=== PATIENT | male | born 1970 | race Two or more races ===

== ENCOUNTER 2016-11-07 05:24 | Observation (INO) | payer OTHER ==
[~2016-11-07] VITALS: Ht 170.2 cm; Wt 69.6 kg
[~2016-11-07 05:24] MED LIST: ASPI81TA3 PO; ATOR80TA75 PO; CLOP75TA28 PO; LISI-313 PO; METO-448 PO; NIT4 SL
[2016-11-07 06:01] LABS: ADD SCAN DIFF NO
[2016-11-07 06:03] LABS: BASOPHIL # 0.1 10^3/ul (0.0-0.1); BASOPHILS % 0.7 % (0.0-2.0); EOSINOPHILS # 0.1 10^3/ul (0.0-0.5); EOSINOPHILS % 1.5 % (0.0-7.0); HEMATOCRIT 41.2 % (42.0-52.0); LYMPHOCYTES # 2.7 10^3/ul (0.8-2.9); MEAN CORPUSCULAR HEMOGLOBIN 28.9 pg (29.0-33.0); MEAN CORPUSCULAR VOLUME 85.1 fl (82.0-101.0); MEAN PLATELET VOLUME 8.6 fl (7.4-10.4); MONOCYTE # 0.6 10^3/ul (0.3-0.9); MONOCYTES % 9.5 % (0.0-11.0); NEUTROPHIL # 3.2 10^3/ul (1.6-7.5); PLATELET COUNT 266 10^3/UL (140-415); RED BLOOD COUNT 4.84 10^6/ul (4.70-6.10); RED CELL DISTRIBUTION WIDTH 12.7 % (11.5-14.5); WHITE BLOOD COUNT 6.7 10^3/ul (4.8-10.8)
[2016-11-07] MEDS ORDERED: HYDR-902 PO (06:05)
[2016-11-07] MEDS ORDERED: PANT40TA4 PO (06:05)
[2016-11-07 06:23] LABS: ANION GAP 12 (8-16); BLOOD UREA NITROGEN 9 mg/dl (7-20); CALCIUM 8.5 mg/dl (8.4-10.2); CARBON DIOXIDE 21 mmol/L (21-31); CHLORIDE 106 mmol/L (97-110); CREATININE 0.61 mg/dl (0.61-1.24); GLUCOSE 106 mg/dl (70-220); POTASSIUM 3.7 mmol/L (3.5-5.1); SODIUM 135 mmol/L (135-144)
[2016-11-07 06:25] LABS: INR 0.88; PROTIME 11.9 Sec (12.2-14.2); PT RATIO 0.9
[2016-11-07 06:26] LABS: PARTIAL THROMBOPLASTIN TIME 28.2 Sec (25.0-35.0)
--- NOTE | 2016-11-07 06:30 | RADRPT ---
PROCEDURE: CHEST - 1 VIEW CLINICAL INDICATION: 46-year-old male with chest pain. TECHNIQUE: A single frontal AP semi-erect view of the chest was performed. The images were review ed on a PACS workstation. COMPARISON: Chest x-ray June 07, 2016; CTA chest June 08, 2016. FINDINGS: The cardiomediastinal silhouette has a normal appearance. There is no evidence for an infiltrate. There is no evidence for congestive heart failure. There is no evidence for pneumothorax. The osseou s structures are intact. IMPRESSION: No evidence for active cardiopulmonary disease. .Miki Zepeda MD, Date Time Electronically viewed and signed by .Miki Zepeda MD, MD on 11/07/2016 06:30 .M/
[2016-11-07] MEDS ORDERED: ASPIRIN 81 MG TAB PO STA (06:33)
[2016-11-07] MEDS ORDERED: NITROGLYCERIN 2% 1 GM OINT PKT TD STA (06:33)
--- NOTE | 2016-11-07 06:33 | ERA ---
ER Documentation Chief Complaint Date/Time DATE: 11/07/16 TIME: 06:28 Chief Complaint Chest Pain HPI This is a 46-year-old male with a history of 3 heart attacks with 5 cardiac stents. He says his last heart attack was in May 2016. The patient states that he woke a few hours ago is some substernal chest pressure similar to his prior heart attacks or shortness of breath. There is no radiation of pressure no diaphoresis. He said he called the ambulance where he was given 2 sprays of nitroglycerin which relieved his chest pain completely. Patient does not know who his crap shooter is. He is currently pain-free. Patient says he had a few drinks last night but does not drink on a daily basis. He said when he had his chest pain this morning he checked his blood pressure was 187/110. ROS All systems reviewed and are negative except as per history of present illness. Medications Home Meds Active Scripts Metoprolol Tartrate* (Lopressor*) 25 Mg Tab, 25 MG PO BID for 30 Days, TAB 1 Refill Prov:DOUGLAS NGUYEN MD 06/08/16 Lisinopril* (Lisinopril*) 5 Mg Tablet, 5 MG PO DAILY for 30 Days, TAB 1 Refill Prov:DOUGLAS NGUYEN MD 06/08/16 Clopidogrel Bisulfate (Clopidogrel) 75 Mg Tablet, 75 MG PO DAILY for 30 Days, TAB 1 Refill Prov:DOUGLAS NGUYEN MD 06/08/16 Atorvastatin* (Atorvastatin*) 80 Mg Tablet, 80 MG PO HS for 30 Days, TAB 1 Refill Prov:DOUGLAS NGUYEN MD 06/08/16 Aspirin (Aspirin) 81 Mg Chew, 81 MG PO DAILY for 30 Days, TAB 1 Refill Prov:DOUGLAS NGUYEN MD 06/08/16 Reported Medications Hydrocodone/Acetaminophen ([place] 10-325 Tablet) 1 Each Tablet, 1 EACH PO Y for PAIN, TAB 11/07/16 Pantoprazole* (Pantoprazole*) 40 Mg Tablet.dr, 40 MG PO DAILY, TAB 11/07/16 Discontinued Scripts Nitroglycerin* (Nitrostat*) 0.4 Mg Tab.subl, 1 TAB SL Q5M Y for ANGINA for 15 Days, 1 Refill Prov:DOUGLAS NGUYEN MD 06/08/16 Allergies Allergies: Coded Allergies: No Known Drug Allergies (Unverified Allergy, Mild, 11/07/16) PMhx/Soc History of Surgery: No Anesthesia Reaction: No Hx Neurological Disorder: No Hx Respiratory Disorders: No Hx Cardiac Disorders: Yes (CAD,STEMI,STENTS) Hx Psychiatric Problems: No Hx Miscellaneous Medical Probl: No Hx Alcohol Use: No Hx Substance Use: No Hx Tobacco Use: Yes Smoking Status: Current every day smoker FmHx Family History: coronary disease Physical Exam Vitals Vital Signs Date Time Temp Pulse Resp B/P Pulse Ox O2 Delivery O2 Flow Rate FiO2 11/07/16 05:37 98.3 87 20 127/87 100 Physical Exam Const: Well-developed, well-nourished, smells of alcohol Head: Atraumatic, normocephalic Eyes: Normal Conjunctiva, PERRLA, EOMI, normal sclera, no nystagmus ENT: Normal External Ears, Nose and Mouth, moist mucus membranes. Neck: Full range of motion. No meningismus, no lymphadenopathy. Resp: Clear to auscultation bilaterally, no wheezing, rhonchi, rales Cardio: Regular rate and rhythm, no murmurs, S1 S2 present Abd: Soft, non tender x 4, non distended. Normal bowel sounds, no guarding or rebound, no pulsitile abdominal masses or bruits Skin: No petechiae or rashes, no ecchymosis , no maculopapular rash Back: No midline or flank tenderness Ext: No cyanosis, or edema, FROM x 4, normal inspection, neurovascularly intact x 4 Neur: Awake and alert, STR 5/5 x 4, sensation intact x 4, no focal findings, cerebellum intact Psych: Normal Mood and Affect Result Diagram: 11/07/16 0530 11/07/16 0201 Results 24 hrs Laboratory Tests Test 11/07/16 02:01 11/07/16 05:30 Prothrombin Time 11.9Sec Prothrombin Time Ratio 0.9 INR International Normalized Ratio 0.88 Activated Partial Thromboplast Time 28.2Sec Sodium Level 135mmol/L Potassium Level 3.7mmol/L Chloride Level 106mmol/L Carbon Dioxide Level 21mmol/L Anion Gap 12 Blood Urea Nitrogen 9mg/dl Creatinine 0.61mg/dl Glucose Level 106mg/dl Calcium Level 8.5mg/dl Troponin I < 0.012ng/ml White Blood Count 6.710^3/ul Red Blood Count 4.8410^6/ul Hemoglobin 14.0g/dl Hematocrit 41.2% Mean Corpuscular Volume 85.1fl Mean Corpuscular Hemoglobin 28.9pg Mean Corpuscular Hemoglobin Concent 34.0g/dl Red Cell Distribution Width 12.7% Platelet Count 49590^3/UL Mean Platelet Volume 8.6fl Neutrophils % 48.0% Lymphocytes % 40.0% Monocytes % 9.5% Eosinophils % 1.5% Basophils % 0.7% Nucleated Red Blood Cells % 0.0/100WBC Neutrophils # 3.210^3/ul Lymphocytes # 2.710^3/ul Monocytes # 0.610^3/ul Eosinophils # 0.110^3/ul Basophils # 0.110^3/ul Nucleated Red Blood Cells # 0.010^3/ul Ethyl Alcohol Level 42.0mg/dl Current Medications Medications (Trade) Dose Ordered Sig/Gayle Route PRN Reason Start Time Stop Time Status Last Admin Dose Admin Aspirin (Aspirin) 162 mg ONCE STAT PO 11/07/16 06:33 11/07/16 06:36 DC 11/07/16 07:34 Nitroglycerin (Nitroglycerin 2% Oint) 1 inch ONCE STAT TD 11/07/16 06:33 11/07/16 06:36 DC 11/07/16 07:34 Procedures/MDM EKG: Rate/Rhythm: [Normal Sinus Rhythm,NL intervals] QRS, ST, QT: NORMAL RI, QRS, QT] Impression: [NORMAL EKG] PROCEDURE: CHEST - 1 VIEW CLINICAL INDICATION: 46-year-old male with chest pain. TECHNIQUE: A single frontal AP semi-erect view of the chest was performed. The images were reviewed on a PACS workstation. COMPARISON: Chest x-ray June 07, 2016; CTA chest June 08, 2016. FINDINGS: The cardiomediastinal silhouette has a normal appearance. There is no evidence for an infiltrate. There is no evidence for congestive heart failure. There is no evidence for pneumothorax. The osseous structures are intact. IMPRESSION: No evidence for active cardiopulmonary disease. .Miki Zepeda MD, MD Date Time Electronically viewed and signed by .Miki Zepeda MD, on 11/07/2016 06:30 .M/ CC: ROB GLASS MD Patient's symptoms are concerning for cardiac cause will require inpatient workup and continuous monitoring. Further w/u for ischemia, arrhythmia, PE or dissection will be deferred to the inpatient team. Accepting Care Team: Current data and ongoing care discussed. Time: Time of admission Primary Provider: [XOXOXO] Consulting: [XOXOXO] Outstanding Data: none Departure Diagnosis: Primary Impression: Chest pain Qualified Code: R07.9 - Chest pain, unspecified type Condition: Stable SONY FIORE DO November 07, 2016 06:33
[2016-11-07 06:44] LABS: TROPONIN-I < 0.012 ng/ml (0.00-0.12)
[2016-11-07] MEDS ORDERED: ACETAMINOPHEN 325 MG TAB PO PRN ×2 (10:30→11:00)
[2016-11-07] MEDS ORDERED: ONDANSETRON 4 MG INJ IV PRN ×2 (10:30→11:00)
[2016-11-07] MEDS ORDERED: BISACODYL (EC) 5 MG TAB PO PRN (11:00)
[2016-11-07] MEDS ORDERED: HYDROCODONE/APAP (5/325) TAB PO PRN (11:00)
[2016-11-07] MEDS ORDERED: NACL 0.9% 3 ML SYG IV SCH (11:00)
[2016-11-07] MEDS ORDERED: morphine 2 MG INJ IV PRN (11:00)
[2016-11-07] MEDS ORDERED: MAGNESIUM HYDROXIDE 30ML CUP PO PRN (11:00)
[2016-11-07] MEDS ORDERED: LORAZEPAM 0.5 MG TAB PO PRN (11:00)
[2016-11-07] MEDS ORDERED: hydrALAzine 20 MG INJ IV PRN (12:00)
[2016-11-07 12:21] LABS: CREATINE KINASE 96 IU/L (23-200)
[2016-11-07 12:28] VITALS: Ht 170.2 cm; Wt 69.6 kg
[2016-11-07 12:29] VITALS: PULSE 80
[2016-11-07 12:32] LABS: TROPONIN-I < 0.012 ng/ml (0.00-0.12)
--- NOTE | 2016-11-07 14:04 | CONS ---
Date/Time of Note Date/Time of Note DATE: 11/07/16 TIME: 13:52 Assessment/Plan Assessment/Plan Chief Complaint/Hosp Course Chest pain: Pt with very significant h/o CAD with multiple PCIs. Though his EKG and trops are unremarkable and his chest pain may have been from subendocardial ischemia in the setting of his elevated BP, stress testing (especially with known intermediate mid RCA lesion) is appropriate to evaluate for ischemia. h/o CAD s/p STEMI/multiple PCIs: last cath 05/25 reviewed and the pt has an intermediate 50% distal RCA lesion. Possibly causing the angina but will evaluate by noninvasive testing first. HTN HL Active smoker: counseled on cessation (>10 min) but currently not interested -Lexiscan MPI today -ASA, plavix, statin -metoprolol 25mg BID -lisinopril -will consider adding imdur Problems: Consultation Date/Type/Reason Admit Date/Time November 07, 2016 at 10:08 Date of Consultation: November 07, 2016 Type of Consultation: Cardiology Reason for Consultation Chest pain Referring Provider: KESHA HERNANDEZ ADULT PAROLE OFFICER Hx of Present Illness 46 yo M with a h/o CAD s/p PCI x 5 including lateral STEMI 05/2016 s/p PCI of diag, HTN, active smoker, who presented with chest pain. The pt notes that he woke up from his sleep and felt tightness in his throat which is the sensation he feels when his BP is high. He checked and his SBP was 185. Usually the symptyoms go away after he takes his lisinopril and metoprolol but they did not resolve quickly so he called paramedics. After he was given NTG spray his symptoms eventually resolved. His BP on admission was normal. He notes that during his prior [place] episodes including 05/25, he usually feels chest pressure but these episodes are more throat tightness. He is compliant with his meds but continues to smoke 1+ pack daily (previously 3-4 per pt). He is not interested in quiting at this time. Currently he is chest pain free. No SOB, orthopnea, edema. per HPI Past Surgical History Past Surgical Hx: angioplasty Social History Smoking Status: Current every day smoker Exam/Review of Systems Vital Signs Vitals Vital Signs Date Time Temp Pulse Resp B/P Pulse Ox O2 Delivery O2 Flow Rate FiO2 11/07/16 12:29 80 11/07/16 11:30 20 114/70 99 Room Air 11/07/16 05:37 98.3 Exam Constitutional: alert, oriented Psych: nl mood/affect, no complaints Head: atraumatic, normocephalic Neck: supple, No jvd Respiratory: clear to auscultation, No crackles/rales Cardiovascular: regular rate and rhythm, No edema, No systolic murmur Gastrointestinal: non-tender, soft Extremities: normal pulses Neurological: nl mental status, nl speech Skin: No rash or lesions Results EKG: sinus, no ST changes Result Diagram: 11/07/16 0530 11/07/16 0201 Results 24 hrs Laboratory Tests Test 11/07/16 02:01 11/07/16 05:30 11/07/16 11:50 11/07/16 12:10 Prothrombin Time 11.9 L Prothrombin Time Ratio 0.9 INR International Normalized Ratio 0.88 Activated Partial Thromboplast Time 28.2 Sodium Level 135 Potassium Level 3.7 Chloride Level 106 Carbon Dioxide Level 21 Anion Gap 12 Blood Urea Nitrogen 9 Creatinine 0.61 Glucose Level 106 Calcium Level 8.5 Troponin I < 0.012 < 0.012 White Blood Count 6.7 # Red Blood Count 4.84 Hemoglobin 14.0 Hematocrit 41.2 L Mean Corpuscular Volume 85.1 Mean Corpuscular Hemoglobin 28.9 L Mean Corpuscular Hemoglobin Concent 34.0 Red Cell Distribution Width 12.7 Platelet Count 266 Mean Platelet Volume 8.6 # Neutrophils % 48.0 Lymphocytes % 40.0 Monocytes % 9.5 Eosinophils % 1.5 Basophils % 0.7 Nucleated Red Blood Cells % 0.0 Neutrophils # 3.2 Lymphocytes # 2.7 Monocytes # 0.6 Eosinophils # 0.1 Basophils # 0.1 Nucleated Red Blood Cells # 0.0 Ethyl Alcohol Level 42.0 Creatine Kinase 96 Creatine Kinase Index 0.5 Creatinine Kinase MB (Mass) 0.50 Hemoglobin A1c 5.7 Free Thyroxine 0.68 Medications Medications Current Medications Lorazepam (Ativan) 0.5 mg Q8H PRN PO ANXIETY; Start 11/07/16 at 11:00 Ondansetron HCl (Zofran Inj) 4 mg Q6H PRN IV NAUSEA AND/OR VOMITING; Start at 11:00 Acetaminophen (Tylenol Tab) 650 mg Q6H PRN PO PAIN LEVEL 1-3 OR FEVER; Start at 11:00 Acetaminophen/ Hydrocodone Bitart ([place] (5/325)) 1 tab Q6H PRN PO PAIN LEVEL 4 -6; Start 11/07/16 at 11:00 Morphine Sulfate (morphine) 2 mg Q4H PRN IV PAIN LEVEL 7-10; Start 11/07/16 at 11:00 Magnesium Hydroxide (Milk Of Mag) 30 ml DAILY PRN PO CONSTIPATION; Start at 11:00 Bisacodyl (Dulcolax) 5 mg DAILY PRN PO CONSTIPATION; Start 11/07/16 at 11:00 Famotidine (Pepcid) 20 mg Q12 PO ; Start 11/07/16 at 21:00 Enoxaparin Sodium (Lovenox) 40 mg DAILY SC ; Start 11/08/16 at 09:00 Aspirin (Aspirin) 81 mg DAILY PO ; Start 11/08/16 at 09:00 Atorvastatin Calcium (Lipitor) 80 mg HS PO ; Start 11/07/16 at 21:00 Clopidogrel Bisulfate (plaVIX) 75 mg DAILY PO ; Start 11/08/16 at 09:00 Lisinopril (Zestril) 5 mg DAILY PO ; Start 11/08/16 at 09:00 Metoprolol Tartrate (Lopressor) 25 mg BID PO ; Start 11/07/16 at 21:00 Nicotine (Nicoderm 14 Mg/ 24hr) 1 patch DAILY TRANSDERM ; Start 11/07/16 at 12: 00 Hydralazine HCl (Apresoline) 10 mg Q6H PRN IV SBP>160; Start 11/07/16 at 12:00 STEPHANI DICKENS November 07, 2016 14:02
--- NOTE | 2016-11-07 14:17 | HP ---
DATE OF ADMISSION: 11/07/2016 TIME OF EVALUATION:. REASON FOR ADMISSION: Chest pain. CONSULTATIONS: Dr. Louis Campbell, Cardiology. HISTORY OF PRESENT ILLNESS: This is a 46-year-old male with past medical history of CAD status post multiple coronary artery stenting, who continues to smoke despite his clinical condition. He came to the emergency room with a main complaint of chest pain that started at 3:00 a.m. in the morning of 2016. The patient verbalized the chest pain as substernal with no radiation. The patient verbalized that he felt chest was very heavy. He checked his blood pressure and his blood pressure was in the high 180s. Hence he called the paramedics. Paramedics arrived and gave him sublingual nitroglycerin with some relief of his chest pain. He denied any radiation of his chest pain. He denied any diaphoresis or nausea. The patient denied any dyspnea, fevers, chills, nausea or vomiting, abdominal pain, diarrhea, hematochezia, or dysuria. The patient verbalized that he had a few beers the previous night. The patient had his last stent placed to the diagonal artery in May [address] Bonilla at [facility]. The patient verbalized that he has been compliant with all his medications, specifically the aspirin and Plavix. In the emergency room, the patient's initial set of troponins were negative. The patient was noticed to have an ethyl alcohol level of 42.0. The patient's chest x-ray showed no evidence of any active cardiopulmonary disease. The patient's 12-lead EKG was showing normal sinus rhythm. The patient was treated with oral aspirin along with transdermal nitroglycerin in the emergency room. PAST MEDICAL HISTORY: Essential hypertension, dyslipidemia, CAD status post coronary artery stenting, nicotine use. PAST SURGICAL HISTORY: Left heart catheterization. HOME MEDICATIONS: 1. Lopressor 25 mg p.o. b.i.d. 2. Lisinopril 5 mg p.o. daily. 3. Plavix 75 mg p.o. daily. 4. Aspirin 81 mg p.o. daily. 5. Atorvastatin 80 mg p.o. at bedtime. 6. Protonix 40 mg p.o. daily. ALLERGIES: NO KNOWN DRUG ALLERGIES. SOCIAL HISTORY: The patient lives at home. The patient continues to smoke 10 to 15 cigarettes per day. The patient drinks occasionally. Denies any use of illicit drugs. REVIEW OF SYSTEMS: A 12-point review of systems performed and the review of systems was negative other than what is mentioned in the history of present illness. PHYSICAL EXAMINATION: VITAL SIGNS: Temperature 98.3, pulse is 66, respiratory rate 20, blood pressure 111/68, oxygen saturation 98% on room air. GENERAL: This is well-built, well-nourished [place] male lying in bed in no apparent distress. HEENT: Head normocephalic and atraumatic. Eyes: Anicteric sclerae. Conjunctivae clear. ENT: Nasal septum is midline. Oral mucosa is dry. NECK: Supple. No JVD noticed. RESPIRATORY: Bilaterally diminished breath sounds. No adventitious breath sounds. No use of accessory muscles of respiration. CARDIAC: Regular rate and rhythm. S1, S2 heard. ABDOMEN: Soft, nontender, nondistended. Bowel sounds positive in all 4 quadrants. GENITOURINARY: Deferred. EXTREMITIES: No cyanosis, no clubbing, no edema. Peripheral pulses are palpable. NEUROLOGIC: The patient is awake, alert and oriented. Cranial nerves are grossly intact. LABORATORY AND DIAGNOSTIC DATA: WBC 6.7, hemoglobin 14.0, hematocrit 41.2, platelet count of 266. Sodium 135, potassium 3.7, chloride 106, carbon dioxide 21, anion gap 12, BUN 9, creatinine 0.64, glucose 106, calcium 8.4. Troponin I less than 0.012. Ethyl alcohol level 42.0. PT 11.9, INR 0.88, PTT 28.2. Chest x-ray: No acute cardiopulmonary disease. 12-lead EKG: Normal sinus rhythm. IMPRESSION: This is a 46-year-old male with multiple comorbidities including essential hypertension, dyslipidemia and prior CAD, status post stenting, who came to the emergency room with chief complaint of chest pain, who will be admitted here for further treatment and evaluation. ASSESSMENT AND PLAN: 1. Chest pain. To rule out acute coronary syndrome. Serial troponins will be obtained. A cardiology consult will be obtained. The patient recently had a 2D echocardiogram done in May 2016, and ordering an echocardiogram will be deferred to Cardiology. The patient will be continued on dual antiplatelet therapy. 2. Coronary artery disease. Status post multiple coronary artery stenting. The patient will be maintained on antiplatelet therapy and statins. 3. Dyslipidemia. The patient will be continued statins. A fasting lipid panel will be obtained. A low cholesterol diet will be reinforced. 4. Essential hypertension. The patient will be continued on antihypertensives. The patient will also be started on p.r.n. antihypertensives for any systolic blood pressure readings greater than 160 mmHg. 5. Nicotine use. Cessation will be advised. The patient will be provided with a nicotine patch. The patient will be admitted to inpatient telemetry floor. The patient will be started on a low cholesterol diet. The patient will be started on DVT prophylaxis and gastrointestinal prophylaxis. The patient will remain a FULL CODE. Activities will be as tolerated. The rest of the patient's management will be based on the clinical course, the results of diagnostic studies, and inputs from consultants. Based on the patient's clinical presentation, he most probably requires at least 1 midnight's stay for further management and evaluation of his clinical presentation. The case and management of this patient was fully discussed with Dr. Burr. KESHA BURR MD, AM/WILVER Conf#: [id number] DID#: [id number] MTDD
[2016-11-07] MEDS ORDERED: REGADENOSON 0.4 MG/5 ML SYG ONE (15:31)
--- NOTE | 2016-11-07 16:26 | EN ---
Date/Time of Note Date/Time of Note DATE: 11/07/16 TIME: 16:25 Event Note Cardiology Cardiology Event Note Nuclear medicine myocardial perfusion imaging: Date: 11/07/2016 Indication: Chest pain with h/o CAD/PCI After informed consent, the patient was given IV Lexiscan. Pt was monitored for a total of 8 minutes post-infusion without any sings of arrhythmias. Patient had no chest pain or EKG changes. Please refer to separate note for imaging results. STEPHANI DICKENS November 07, 2016 16:25
[2016-11-07 16:30] VITALS: BP 133/78; RESP 20
[2016-11-07] MEDS: CLOPIDOGREL 75 MG TAB PO SCH (17:08)
[2016-11-07] MEDS: LISINOPRIL 5 MG TAB PO SCH (17:11)
--- NOTE | 2016-11-07 17:11 | RADRPT ---
PROCEDURE: Lexiscan myocardial perfusion study CLINICAL INDICATION: 46 -year-old patient with coronary artery disease, status post stent placemen ts, complaining of chest pain. TECHNIQUE: Lexiscan 0.4 mg intravenously separate acquisition gated myocardial perfusion SPECT usi ng Tc 99m sestamibi 25.4 mCi intravenously at stress and Tc-99m Sestamibi, 9.4 mCi intravenously at rest was performed using the sequence. Poststress sestamibi SPECT images were obtained in the supi ne and prone positions. COMPARISON: No prior studies. FINDINGS: Perfusion images reveal no evidence of perfusion defects. Lexiscan post stress gated SPECT images demonstrate no wall motion abnormalities. IMPRESSION: 1. No evidence of perfusion defects. 2. No wall motion abnormalities. 3. The left ventricle ejection fraction at stress is 59%. A call report was made to Dr. Campbell at 05:09 p.m. on November 07, 2016. RPTAT: HH .Caitlin Shah MD, MD Date Time Electronically viewed and signed by .Caitlin Shah MD, on 11/07/2016 17:11 .L/
[2016-11-07] MEDS: NICOTINE (14 MG/24 HR) PATCH TRANSDERM SCH (17:12)
[2016-11-07] MEDS: ASPIRIN 81 MG TAB PO SCH (17:12)
[2016-11-07 18:40] LABS: CREATINE KINASE 88 IU/L (23-200)
[2016-11-07 18:55] LABS: CK-MB 0.46 ng/ml (0.0-2.4)
[2016-11-07 19:42] LABS: TROPONIN-I < 0.012 ng/ml (0.00-0.12)
[2016-11-07 19:49] VITALS: BP 125/76; RESP 16
[2016-11-07 20:11] VITALS: PULSE 69
[2016-11-07] MEDS: FAMOTIDINE 20 MG TAB PO SCH (20:42)
[2016-11-07] MEDS: METOPROLOL 25 MG TAB PO SCH (20:43)
[2016-11-07] MEDS ORDERED: ATORVASTATIN 80 MG TAB PO SCH (21:00)
[2016-11-07 23:55] VITALS: BP 116/74; RESP 16
[2016-11-08 00:03] VITALS: PULSE 66
[2016-11-08 04:02] VITALS: PULSE 63
[2016-11-08 04:24] VITALS: BP 110/70; RESP 16
[2016-11-08 07:25] VITALS: BP 105/55; RESP 16
[2016-11-08 07:46] LABS: ADD SCAN DIFF NO
[2016-11-08 07:48] LABS: BASOPHIL # 0.1 10^3/ul (0.0-0.1); BASOPHILS % 0.6 % (0.0-2.0); EOSINOPHILS # 0.1 10^3/ul (0.0-0.5); EOSINOPHILS % 1.5 % (0.0-7.0); HEMATOCRIT 45.7 % (42.0-52.0); LYMPHOCYTES # 2.4 10^3/ul (0.8-2.9); LYMPHOCYTES % 29.7 % (15.0-51.0); MEAN CORPUSCULAR HEMOGLOBIN 28.5 pg (29.0-33.0); MEAN CORPUSCULAR HGB CONC 32.8 g/dl (32.0-37.0); MEAN CORPUSCULAR VOLUME 86.7 fl (82.0-101.0); MEAN PLATELET VOLUME 8.7 fl (7.4-10.4); MONOCYTES % 12.2 % (0.0-11.0); NEUTROPHIL # 4.4 10^3/ul (1.6-7.5); NEUTROPHILS % 55.6 % (39.0-77.0); PLATELET COUNT 253 10^3/UL (140-415); RED BLOOD COUNT 5.27 10^6/ul (4.70-6.10); RED CELL DISTRIBUTION WIDTH 12.7 % (11.5-14.5); WHITE BLOOD COUNT 7.9 10^3/ul (4.8-10.8)
[2016-11-08 08:10] VITALS: PULSE 61
[2016-11-08 08:15] LABS: CALCIUM 9.5 mg/dl (8.4-10.2); CREATININE 0.83 mg/dl (0.61-1.24); POTASSIUM 5.2 mmol/L (3.5-5.1)
[2016-11-08 08:17] LABS: CHOL/HDL RATIO 6.2 RATIO; CHOLESTEROL 263 mg/dl (100-200); HDL CHOLESTEROL 42 mg/dl (27-67); MAGNESIUM 2.3 mg/dl (1.7-2.5); PHOSPHORUS 3.6 mg/dl (2.5-4.9)
[2016-11-08 08:48] LABS: TRIGLYCERIDES 601 mg/dl (0-149); TROPONIN-I < 0.012 ng/ml (0.00-0.12)
--- NOTE | 2016-11-08 08:52 | CONS ---
Date/Time of Note Date/Time of Note DATE: 11/08/16 TIME: 08:47 Assessment/Plan Assessment/Plan Chief Complaint/Hosp Course Chest pain: Symptoms remain different from his prior angina. Trops and EKG are unremarkable. I reviewed the cardiac cath from 05/25 and the RCA lesion is ~50% . MPI was normal. I do not think he needs a cardiac cath at this time. h/o CAD s/p STEMI/multiple PCIs: last cath 05/25 reviewed and the pt has an intermediate 50% distal RCA lesion.MPI is normal though and current symptoms are atypical. HTN HL Active smoker: counseled on cessation (>10 min) but currently not interested -ASA, plavix, statin -metoprolol 25mg BID -lisinopril -may consider imdur but likely noncardiac pain -ok for d/c if ambulates without symptoms -if recurrence of symptoms in the future, consider cath or coronary CTA Problems: Consultation Date/Type/Reason Admit Date/Time November 07, 2016 at 10:08 Initial Consult Date 11/07/16 Type of Consultation: Cardiology Referring Provider: KESHA HERNANDEZ MACHINE JOINER CEMENTER 24 HR Interval Summary Free Text/Dictation Last night had some very mild pinpoint chest discomfort, again noted to be very different from his prior [place] presentation. MPI was normal. Exam/Review of Systems Vital Signs Vitals Vital Signs Date Time Temp Pulse Resp B/P Pulse Ox O2 Delivery O2 Flow Rate FiO2 11/08/16 08:10 61 11/08/16 07:25 98.0 16 105/55 95 11/07/16 11:30 Room Air Intake and Output 11/07/16 11/07/16 11/08/16 15:00 23:00 07:00 Intake Total 1000 ml 300 ml Balance 1000 ml 300 ml Exam Constitutional: alert, oriented Head: atraumatic, normocephalic Neck: No jvd Respiratory: clear to auscultation Cardiovascular: regular rate and rhythm, No edema Gastrointestinal: non-tender, soft Neurological: nl mental status, nl speech Results Result Diagram: 11/08/16 0649 11/08/16 0649 Results 24 hrs Laboratory Tests Test 11/07/16 11:50 11/07/16 12:10 11/07/16 17:40 11/08/16 06:49 Creatine Kinase 96 88 Creatine Kinase Index 0.5 0.5 Creatinine Kinase MB (Mass) 0.50 0.46 Troponin I < 0.012 < 0.012 Hemoglobin A1c 5.7 Thyroid Stimulating Hormone (TSH) 2.140 Free Thyroxine 0.68 White Blood Count 7.9 Red Blood Count 5.27 Hemoglobin 15.0 Hematocrit 45.7 Mean Corpuscular Volume 86.7 Mean Corpuscular Hemoglobin 28.5 L Mean Corpuscular Hemoglobin Concent 32.8 Red Cell Distribution Width 12.7 Platelet Count 253 Mean Platelet Volume 8.7 Neutrophils % 55.6 Lymphocytes % 29.7 Monocytes % 12.2 H Eosinophils % 1.5 Basophils % 0.6 Nucleated Red Blood Cells % 0.0 Neutrophils # 4.4 Lymphocytes # 2.4 Monocytes # 1.0 H Eosinophils # 0.1 Basophils # 0.1 Nucleated Red Blood Cells # 0.0 Sodium Level 141 Potassium Level 5.2 H Chloride Level 108 Carbon Dioxide Level 30 Anion Gap 8 Blood Urea Nitrogen 15 Creatinine 0.83 Glucose Level 108 Calcium Level 9.5 Medications Medications Current Medications Lorazepam (Ativan) 0.5 mg Q8H PRN PO ANXIETY; Start 11/07/16 at 11:00 Ondansetron HCl (Zofran Inj) 4 mg Q6H PRN IV NAUSEA AND/OR VOMITING; Start at 11:00 Acetaminophen (Tylenol Tab) 650 mg Q6H PRN PO PAIN LEVEL 1-3 OR FEVER; Start at 11:00 Acetaminophen/ Hydrocodone Bitart ([place] (5/325)) 1 tab Q6H PRN PO PAIN LEVEL 4 -6; Start 11/07/16 at 11:00 Morphine Sulfate (morphine) 2 mg Q4H PRN IV PAIN LEVEL 7-10; Start 11/07/16 at 11:00 Magnesium Hydroxide (Milk Of Mag) 30 ml DAILY PRN PO CONSTIPATION; Start at 11:00 Bisacodyl (Dulcolax) 5 mg DAILY PRN PO CONSTIPATION; Start 11/07/16 at 11:00 Famotidine (Pepcid) 20 mg Q12 PO Last administered on 11/07/16t 20:42; Admin Dose 20 MG; Start 11/07/16 at 21:00 Enoxaparin Sodium (Lovenox) 40 mg DAILY SC ; Start 11/08/16 at 09:00 Atorvastatin Calcium (Lipitor) 80 mg HS PO Last administered on 11/07/16 20:42 ; Admin Dose 80 MG; Start 11/07/16 at 21:00 Metoprolol Tartrate (Lopressor) 25 mg BID PO Last administered on 11/07/16 20: 43; Admin Dose 25 MG; Start 11/07/16 at 21:00 Nicotine (Nicoderm 14 Mg/ 24hr) 1 patch DAILY TRANSDERM Last administered on 17:12; Admin Dose 1 PATCH; Start 11/07/16 at 12:00 Hydralazine HCl (Apresoline) 10 mg Q6H PRN IV SBP>160; Start 11/07/16 at 12:00 Aspirin (Aspirin) 81 mg DAILY PO Last administered on 11/07/16 17:12; Admin Dose 81 MG; Start 11/07/16 at 14:00 Clopidogrel Bisulfate (plaVIX) 75 mg DAILY PO Last administered on 11/07/16 17 :08; Admin Dose 75 MG; Start 11/07/16 at 14:00 Lisinopril (Zestril) 5 mg DAILY PO Last administered on 11/07/16 17:11; Admin Dose 5 MG; Start 11/07/16 at 14:00 STEPHANI DICKENS Nov 08, 2016 08:52
[2016-11-08] MEDS ORDERED: ENOXAPARIN 40 MG/0.4 ML SYG SC SCH (09:00)
[2016-11-08] MEDS ORDERED: LISINOPRIL 5 MG TAB PO SCH (09:00)
[2016-11-08] MEDS ORDERED: ASPIRIN 81 MG TAB PO SCH (09:00)
[2016-11-08] MEDS ORDERED: CLOPIDOGREL 75 MG TAB PO SCH (09:00)
[2016-11-08] MEDS: NICOTINE (14 MG/24 HR) PATCH TRANSDERM SCH (09:25)
[2016-11-08] MEDS: CLOPIDOGREL 75 MG TAB PO SCH (09:26)
[2016-11-08] MEDS: FAMOTIDINE 20 MG TAB PO SCH (09:26)
[2016-11-08] MEDS: ASPIRIN 81 MG TAB PO SCH (09:27)
[2016-11-08] MEDS: METOPROLOL 25 MG TAB PO SCH (09:27)
[2016-11-08] MEDS: LISINOPRIL 5 MG TAB PO SCH (09:28)
--- NOTE | 2016-11-08 10:36 | PDOCDIS ---
Discharge Instructions DIAGNOSIS Discharge Diagnosis: Chest pain. CONDITION Patient Condition: Stable HOME CARE INSTRUCTIONS: Special Diet: Cardiac FOLLOW UP/APPOINTMENTS Appointments Khoa Carrasco MD Specialty: Internal Medicine Office Address: [address] [place] [address] [place], [place] [id number] Office OTHER ORDERS: Other Orders: 1. Resume home medications. 2. Resume activities as tolerated. 3. Follow-up with your internet marketing analyst in 2 weeks. If you do not have a internet marketing analyst, please have your primary care physician arrange for outpatient cardiology follow-up. 4. If you do not have a primary care physician, please call Dr. Khoa Carrasco's office. 5. Avoid tobacco use. 6. Take a low-cholesterol diet. 7. Please call 911 or go to the nearest emergency room if you have any significant chest pain, shortness of breath, or any other unusual signs/ symptoms. KESHA HERNANDEZ NP Nov 08, 2016 10:36
[2016-11-08] MEDS ORDERED: OMEG1CAP55 PO (10:37)
[2016-11-08] MEDS ORDERED: GEMF600T60 PO (10:37)
[2016-11-08] MEDS ORDERED: FUROSEMIDE 20 MG INJ IV ONE (11:00)
[2016-11-08 11:11] VITALS: BP 105/66; RESP 16
--- NOTE | 2016-11-08 14:19 | DS ---
DATE OF ADMISSION: 11/07/2016 DATE OF DISCHARGE: 11/08/2016 FINAL DIAGNOSES: 1. Chest pain. Acute coronary syndrome ruled out. 2. Coronary artery disease. 3. Dyslipidemia. 4. Essential hypertension. 5. Nicotine use. CONSULTANTS: Louis Campbell MD, Cardiology. HOSPITAL COURSE. This is a 46-year-old male with past medical history of CAD, status post multiple coronary artery stenting, who continues to smoke despite his clinical condition, and came to the emergency room with chief complaint of chest pain that started around 3 a.m. in the morning of 11/07/2016. The patient verbalized the chest pain as substernal with no radiation. The patient verbalized that he felt the chest was very heavy. He checked his blood pressure and his blood pressure was in the high 180s. Hence, he called paramedics. Paramedics arrived and gave him sublingual nitroglycerin with some relief of his chest pain. He denied any radiation of his chest pain. He denied any diaphoresis or nausea. In the emergency room, the patient's troponins were negative. The patient's 12-lead EKG was showing normal sinus rhythm. The patient was treated with oral aspirin along with transdermal nitroglycerin in the emergency room. Provided the patient's history of present illness, his comorbidities, and the diagnostic findings, a clinical decision was made to admit the patient to inpatient setting to have him further evaluated. The patient was admitted to inpatient telemetry floor. A cardiology consult was called. Serial troponins were ordered. The patient was evaluated by cardiology. The patient's serial troponins remained negative. The patient underwent a nuclear medicine stress test that was negative for any reversible perfusion defects. The patient's left ventricular ejection fraction at stress was 59%. Hence, it was concluded that the patient's chest pain was most probably noncardiac in origin versus from the transient episode of accelerated hypertension that was evident on the patient's blood pressure readings done at home. The patient was maintained on dual antiplatelet therapy because of his history of CAD with coronary artery stenting with the latest stent put in May 2016. The patient was maintained on antihypertensives including p.r.n. antihypertensives for any elevated systolic blood pressure readings. The patient's blood pressure was well controlled throughout the patient's hospital course. The patient was noted to have significant dyslipidemia with a triglyceride level of 601, total cholesterol of 263 and a suboptimal LDL. The patient is already on maximum dose of statins. Hence, the patient was also added on fibrates and also fish oil. The patient continues to smoke despite having a history of multiple stent placements to the coronary arteries in the past. The patient was advised multiple times on the importance of quitting the use of tobacco. The patient was provided with a nicotine patch during the patient's hospital course. The patient had a stable hospital course. The patient was cleared by cardiology to be discharged home. The patient denied any complaints at the time of discharge. DISCHARGE DISPOSITION/PLAN: The patient will be discharged home today. The patient was instructed to resume his home medications. He was instructed to resume activities as tolerated. He was instructed to follow up with his thermometer maker in 2 weeks and if he does not have a thermometer maker, to please have his primary care physician arrange for an outpatient cardiology followup. The patient was instructed if he does not have a primary care physician, to please call Dr. Khoa Carrasco's office. He was instructed to avoid tobacco use. He was instructed to follow a low cholesterol diet. He was instructed to call 911 or go to the nearest emergency room if he has any significant chest pain, shortness of breath or any other unusual signs/symptoms. The patient verbalized understanding of his discharge instructions. CONDITION AT DISCHARGE: Stable. DISCHARGE PHYSICAL EXAM: GENERAL: This is well-built, well-nourished [place] male lying in bed in no apparent distress. HEENT: Head normocephalic and atraumatic. Eyes: Anicteric sclerae. Conjunctivae clear. ENT: Nasal septum is midline. Oral mucosa is dry. NECK: Supple. No JVD noticed. RESPIRATORY: Bilaterally diminished breath sounds. No adventitious breath sounds. No use of accessory muscles of respiration. CARDIAC: Regular rate and rhythm. S1, S2 heard. ABDOMEN: Soft, nontender, nondistended. Bowel sounds positive in all 4 quadrants. GENITOURINARY: Deferred. EXTREMITIES: No cyanosis, no clubbing, no edema. Peripheral pulses are palpable. NEUROLOGIC: The patient is awake, alert and oriented. Cranial nerves are grossly intact. DISCHARGE MEDICATIONS: 1. Gemfibrozil 600 mg p.o. b.i.d. 2. Fish oil 2000 mg p.o. b.i.d. 3. Aspirin 81 mg p.o. daily. 4. Plavix 75 mg p.o. daily. 5. Atorvastatin 80 mg p.o. at bedtime. 6. [place] 10/325 one tablet p.o. q.6h. p.r.n. pain. 7. Lisinopril 5 mg p.o. daily. 8. Metoprolol 20 mg p.o. b.i.d. 9. Protonix 40 mg p.o. daily. PERTINENT LABORATORY AND DIAGNOSTIC DATA 1. Chest x-ray upon admission. No evidence of active cardiopulmonary disease. 2. Nuclear medicine cardiac stress test. No evidence of perfusion defects. No wall motion abnormalities. The left ventricular ejection fraction at stress is 59%. 3. Latest CBC: WBC 7.9, hemoglobin 15.0, hematocrit 47.7, platelet count 253. 4. Latest BMP: Sodium 141, potassium 5.2, chloride 108, carbon dioxide 30, anion gap 8, BUN 15, creatinine 0.83, glucose 108, calcium 9.5, phosphorus 3.6, magnesium 2.3. 5. Hemoglobin A1c 5.7. 6. Fasting lipid panel: Triglycerides 601, cholesterol 263, LDL 101, HDL 42 7. Ethyl alcohol level 42.0. At this time, I would like to thank Dr. Campbell for seeing the patient, doing the necessary procedures, and providing clinical recommendations. The case and management of this patient was fully discussed with Dr. Burr. Approximately 35 minutes was spent on coordinating the discharge on this patient. KESHA BURR MD, AM/WILVER Conf#: [id number] DID#: [id number] MTDD
[2016-11-08] MEDS ORDERED: GEMFIBROZIL 600 MG TAB PO SCH (21:00)
[2016-11-08] MEDS ORDERED: FISH OIL 1,000 MG CAP PO SCH (21:00)
== END 2016-11-08 11:51 | disposition home or self-care (01) ==
LOC: E/R 05:24 → MS4 10:08
PROVIDERS: ADMIT Internal Medicine; ATTEND Internal Medicine
DX: R07.9 Chest pain, unspecified (principal); I25.10 Atherosclerotic heart disease of native coronary artery without angina pectoris; Z95.5 Presence of coronary angioplasty implant and graft; F17.210 Nicotine dependence, cigarettes, uncomplicated; I10 Essential (primary) hypertension; E78.5 Hyperlipidemia, unspecified; Z79.82 Long term (current) use of aspirin; Z79.02 Long term (current) use of antithrombotics/antiplatelets; Z82.49 Family history of ischemic heart disease and other diseases of the circulatory system
CPT/HCPCS: 36415; 71010; 78452; 80048; 80061; 80306; 82550; 82553; 83036; 83735; 84100; 84439; 84443; 84484; 85025; 85610; 85730; 93005; 93017; 96372; 96374; A9500; A9505; J1650; J1940; J2785; Z7500; Z7502; Z7610; G0378

== ENCOUNTER 2017-04-14 12:37 | Inpatient (IN) | payer OTHER ==
[~2017-04-14] VITALS: Ht 170.2 cm; Wt 72.5 kg
[~2017-04-14 12:37] MED LIST changes: +GEMF600T60 PO; +HYDR-902 PO; -NIT4 SL; +OMEG1CAP55 PO; +PANT40TA4 PO
[2017-04-14] MEDS ORDERED: ASPIRIN 81 MG TAB PO ONE (13:00)
--- NOTE | 2017-04-14 13:03 | ERD ---
ER Documentation Chief Complaint Chief Complaint BIB [facility] FOR EVAL OF CP TODAY AT REST. ASA 162MG AND 2 SPRAYS NTG WITH RELIEF HPI This is a 46-year-old gentleman who appears older than stated age with a history of cardiac disease and 5 stents in the past who presents with chest pain. He described chest pain while at rest that was not provoked that is completely alleviated with aspirin and nitroglycerin via EMS. He describes it as pressure, central and nonradiating. No pleuritic pain. He states this is consistent with his anginal equivalent. No recent travel, immobilization or calf swelling. ROS All systems reviewed and are negative except as per history of present illness. Medications Home Meds Active Scripts Gemfibrozil* (Gemfibrozil*) 600 Mg Tablet, 600 MG PO BID for 30 Days, TAB Prov:KESHA HENRANDEZ NP 11/08/16 [place]-3/Dha/Epa/Fish Oil (FISH OIL EC 1,000 MG SOFTGEL) 1 Each Capsule.dr, 2000 MG PO BID for 30 Days Prov:KESHA HERNANDEZ NP 11/08/16 Metoprolol Tartrate* (Lopressor*) 25 Mg Tab, 25 MG PO BID for 30 Days, TAB 1 Refill Prov:DOUGLAS NGUYEN MD 06/08/16 Lisinopril* (Lisinopril*) 5 Mg Tablet, 5 MG PO DAILY for 30 Days, TAB 1 Refill Prov:DOUGLAS NGUYEN MD 06/08/16 Clopidogrel Bisulfate (Clopidogrel) 75 Mg Tablet, 75 MG PO DAILY for 30 Days, TAB 1 Refill Prov:DOUGLAS NGUYEN MD 06/08/16 Atorvastatin* (Atorvastatin*) 80 Mg Tablet, 80 MG PO HS for 30 Days, TAB 1 Refill Prov:DOUGLAS NGUYEN MD 06/08/16 Aspirin (Aspirin) 81 Mg Chew, 81 MG PO DAILY for 30 Days, TAB 1 Refill Prov:DOUGLAS NGUYEN MD 06/08/16 Reported Medications Hydrocodone/Acetaminophen ([place] 10-325 Tablet) 1 Each Tablet, 1 EACH PO Y for PAIN, TAB 11/07/16 Pantoprazole* (Pantoprazole*) 40 Mg Tablet.dr, 40 MG PO DAILY, TAB 11/07/16 Allergies Allergies: Coded Allergies: No Known Drug Allergies (Unverified Allergy, Mild, 11/07/16) PMhx/Soc History of Surgery: No Anesthesia Reaction: No Hx Neurological Disorder: No Hx Respiratory Disorders: No Hx Cardiac Disorders: Yes Hx Psychiatric Problems: No Hx Miscellaneous Medical Probl: No Hx Alcohol Use: Yes Hx Substance Use: Yes Hx Tobacco Use: Yes FmHx Family History: No coronary disease, No diabetes Physical Exam Vitals Vital Signs Date Time Temp Pulse Resp B/P Pulse Ox O2 Delivery O2 Flow Rate FiO2 04/14/17 12:59 77 15 135/86 99 Room Air 04/14/17 12:46 98.0 88 18 118/100 99 Physical Exam General: Well developed, well nourished, no acute distress Head: Normocephalic, atraumatic. Eyes: Pupils equally reactive, EOM intact ENT: Moist mucous membranes Neck: Supple, no lymphadenopathy Respiratory: Lungs clear bilaterally, no distress Cardiovascular: RRR, no murmurs, rubs, or gallops Abdominal: Soft, non-tender, non-distended, no peritoneal signs : Deferred MSK: No edema, no unilateral swelling, 5/5 strength no pulse deficits Neurologic: Alert and oriented, moving all extremities, normal speech, no focal weakness, no cerebellar signs Skin: No rash Psych: Normal mood Result Diagram: 04/14/17 1255 04/14/17 1255 Results 24 hrs Laboratory Tests Test 04/14/17 12:55 White Blood Count 9.510^3/ul Red Blood Count 5.0410^6/ul Hemoglobin 14.5g/dl Hematocrit 42.3% Mean Corpuscular Volume 83.9fl Mean Corpuscular Hemoglobin 28.8pg Mean Corpuscular Hemoglobin Concent 34.3g/dl Red Cell Distribution Width 12.7% Platelet Count 12811^3/UL Mean Platelet Volume 8.6fl Neutrophils % 74.8% Lymphocytes % 15.9% Monocytes % 8.0% Eosinophils % 0.2% Basophils % 0.8% Nucleated Red Blood Cells % 0.0/100WBC Neutrophils # 7.110^3/ul Lymphocytes # 1.510^3/ul Monocytes # 0.810^3/ul Eosinophils # 0.010^3/ul Basophils # 0.110^3/ul Nucleated Red Blood Cells # 0.010^3/ul Sodium Level 140mmol/L Potassium Level 3.6mmol/L Chloride Level 107mmol/L Carbon Dioxide Level 23mmol/L Anion Gap 14 Blood Urea Nitrogen 11mg/dl Creatinine 0.65mg/dl Glucose Level 100mg/dl Calcium Level 7.9mg/dl Creatine Kinase 113IU/L Creatine Kinase Index 0.6 Creatinine Kinase MB (Mass) 0.69ng/ml Troponin I < 0.012ng/ml Current Medications Medications (Trade) Dose Ordered Sig/Gayle Route PRN Reason Start Time Stop Time Status Last Admin Dose Admin Aspirin (Aspirin) 162 mg ONCE ONCE PO 04/14/17 13:00 04/14/17 13:01 DC Ondansetron HCl (Zofran Inj) 4 mg ER BRIDGE PRN IV NAUSEA AND/OR VOMITING 04/14/17 14:30 04/15/17 14:29 Acetaminophen (Tylenol Tab) 650 mg ER BRIDGE PRN PO MILD PAIN/FEVER 04/14/17 14:30 04/15/17 14:29 Aspirin (Aspirin) 81 mg DAILY PO 04/15/17 09:00 Atorvastatin Calcium (Lipitor) 80 mg HS PO 04/14/17 21:00 Clopidogrel Bisulfate (plaVIX) 75 mg DAILY PO 04/15/17 09:00 Gemfibrozil (Lopid) 600 mg BID PO 04/14/17 21:00 Acetaminophen/ Hydrocodone Bitart ([place] (10/325)) 1 tab Q6H PRN PO PAIN 04/14/17 14:30 Lisinopril (Zestril) 5 mg DAILY PO 04/15/17 09:00 Metoprolol Tartrate (Lopressor) 25 mg BID PO 04/14/17 21:00 Fish Oil (Fish Oil) 2,000 mg BID PO 04/14/17 21:00 Pantoprazole (Protonix Tab) 40 mg DAILY@06 PO 04/15/17 06:00 Procedures/MDM EKG, MONITORS, & DIAGNOSTIC IMAGING: EKG: I reviewed and interpreted a 12-lead EKG. Rhythm: Normal sinus rhythm Ectopy: None Intervals: No abnormalities ST segments: No elevations or depressions T waves: No contiguous inversions Repeat EKG: EKG: I reviewed and interpreted a 12-lead EKG. Rhythm: Normal sinus rhythm Ectopy: None Intervals: No abnormalities ST segments: No elevations or depressions T waves: No contiguous inversions Chest x-ray: I reviewed and interpreted a 1 view of the chest Mediastinum: No enlargement Cardiac silhouette: No cardiomegaly Airspace: Clear lung vincent bilaterally without evidence of pneumothorax Bones: No evidence of fracture LAB INTERPRETATION: Negative troponin MEDICAL DECISION MAKING: The patient's history, physical exam and clinical presentation is concerning for possible cardiogenic etiology and acute coronary syndrome. Based on the patient's clinical exam and history and risk factors, I have a much lower clinical concern for pulmonary embolism, acute aortic dissection, pneumothorax, pneumonia, cardiac tamponade HEART Score: 6 MACE Rate: 16.6% Shared Decision Making: We had a conversation regarding risk stratification, MACE rate, and the risks, benefits, alternatives of disposition planning options. Disposition planning: Given the patient's cardiac history, description of anginal equivalent, strong recommendation for hospitalization, patient agrees. ER COURSE: Patient received full dose of aspirin and nitroglycerin prior to arrival. He is asymptomatic currently. No indication for interventions at this point. Continue to monitor. Patient was advised to report any symptom change. I kept the patient and/or family informed of laboratory and diagnostic imaging results throughout the emergency room course. DISPOSITION PLAN: Telemetry admission for management of chest pain to rule out acute coronary syndrome, serial enzymes, risk stratification and consideration of provocative testing CONSULTATION: Accepting care team and consultations: I discussed the current laboratory data, diagnostic imaging and emergency care provided. Admitting team: Dr. Campbell Admitting team indication: Insurance directed Departure Diagnosis: Primary Impression: Chest pain Chest pain type: unspecified Qualified Code: R07.9 - Chest pain, unspecified type Additional Impression: Acute coronary syndrome Condition: Stable MEGHA NUNN MD Apr 14, 2017 13:03
--- NOTE | 2017-04-14 13:16 | RADRPT ---
PROCEDURE: XR Chest. CLINICAL INDICATION: Chest pain. TECHNIQUE: Single frontal view. COMPARISON: 11/07/2016. FINDINGS: The lungs are clear. The heart size is normal. There is no pleural effusion. There is no pneumothorax. IMPRESSION: 1. Normal chest radiograph. 2. No change from 11/07/2016. RPTAT: QQ .Jani Lockwood MD, MD Date Time Electronically viewed and signed by .Jani Lockwood MD, MD on 04/14/2017 13:16 .R/
[2017-04-14] MEDS ORDERED: HYDROCODONE/APAP (10/325) TAB PO PRN (14:30)
[2017-04-14] MEDS ORDERED: ACETAMINOPHEN 325 MG TAB PO PRN (14:30)
[2017-04-14] MEDS ORDERED: ONDANSETRON 4 MG INJ IV PRN (14:30)
[2017-04-14] MEDS ORDERED: ONDANSETRON 4 MG INJ IV STA (14:46)
--- NOTE | 2017-04-14 15:14 | HP ---
Date/Time of Note Date/Time of Note DATE: 04/14/17 TIME: 15:11 Assessment/Plan VTE Prophylaxis VTE Prophylaxis Intervention: SCD's Lines/Catheters IV Catheter Type (from Nrsg): Saline Lock Assessment/Plan Assessment/Plan 46 yo M with hx CAD sp multiple PCIs most recent 05.25 here with chest pain and vomiting. D/dx ACS v gastro v other PLAN tele ACS r/o with serial trops TTE a1c, lipids cont home meds including DAPT, BP regimen, lipid regimen cards consult in AM HPI/ROS Admit Date/Time Admit Date/Time Hx of Present Illness CC chest pain HPI 46 yo M with pmhx CAD sp PCI most recently 05/25 here with 1 day of chest pain. started at 10 this AM. No SOB. No LE swelling. Also had some vomiting in the ER. Presents with his parents PMH/Family/Social Past Medical History CAD sp PCI Past Surgical History Past Surgical Hx: angioplasty Social History lives in the community Smoking Status: Current every day smoker Exam/Review of Systems Vital Signs Vitals Vital Signs Date Time Temp Pulse Resp B/P Pulse Ox O2 Delivery O2 Flow Rate FiO2 04/14/17 14:31 77 19 121/90 100 Room Air 04/14/17 12:46 98.0 Exam Exam anxious EOMI MMM no mrg lungs clear abd soft +mild erythema noted of R hand, states he was bitten by an insect a few days ago no le edema labs noted Labs Result Diagram: 04/14/17 1255 04/14/17 1255 Medications Medications Current Medications Aspirin (Aspirin) 81 mg DAILY PO ; Start 04/15/17 at 09:00 Atorvastatin Calcium (Lipitor) 80 mg HS PO ; Start 04/14/17 at 21:00 Clopidogrel Bisulfate (plaVIX) 75 mg DAILY PO ; Start 04/15/17 at 09:00 Gemfibrozil (Lopid) 600 mg BID PO ; Start 04/14/17 at 21:00 Acetaminophen/ Hydrocodone Bitart ([place] (10/325)) 1 tab Q6H PRN PO PAIN; Start 04/14/17 at 14:30 Lisinopril (Zestril) 5 mg DAILY PO ; Start 04/15/17 at 09:00 Metoprolol Tartrate (Lopressor) 25 mg BID PO ; Start 04/14/17 at 21:00 Fish Oil (Fish Oil) 2,000 mg BID PO ; Start 04/14/17 at 21:00 Pantoprazole (Protonix Tab) 40 mg DAILY@06 PO ; Start 04/15/17 at 06:00 TAY BURR MD Apr 14, 2017 15:14
[2017-04-14 18:11] VITALS: BP 111/58; RESP 20
[2017-04-14 18:40] VITALS: PULSE 76
[2017-04-14 20:00] VITALS: Ht 170.2 cm; Wt 72.5 kg
[2017-04-14 20:04] VITALS: PULSE 66
[2017-04-14 20:23] VITALS: BP 114/66; RESP 20
[2017-04-14] MEDS: GEMFIBROZIL 600 MG TAB PO SCH (21:00)
[2017-04-14] MEDS ORDERED: DIPHENHYDRAMINE 50 MG CAP PO ONE (21:00)
[2017-04-14] MEDS ORDERED: ATORVASTATIN 80 MG TAB PO SCH (21:00)
[2017-04-14] MEDS: METOPROLOL 25 MG TAB PO SCH (21:00)
[2017-04-14] MEDS: FISH OIL 1,000 MG CAP PO SCH (21:32)
[2017-04-14] MEDS: HYDROCORTISONE 0.5% 28.35 GM CR TOP SCH (22:55)
[2017-04-15] VITALS (8 sets, daily range): BP systolic 99–123; BP diastolic 54–67; PULSE 55–62; RESP 19–20
[2017-04-15] MEDS ORDERED: PANTOPRAZOLE (EC) 40 MG TAB PO SCH (06:00)
[2017-04-15] MEDS: FISH OIL 1,000 MG CAP PO SCH (08:47)
[2017-04-15] MEDS: METOPROLOL 25 MG TAB PO SCH (08:48)
[2017-04-15] MEDS: GEMFIBROZIL 600 MG TAB PO SCH (08:48)
[2017-04-15] MEDS: HYDROCORTISONE 0.5% 28.35 GM CR TOP SCH ×2 (08:49→12:19)
[2017-04-15] MEDS ORDERED: ASPIRIN 81 MG TAB PO SCH (09:00)
[2017-04-15] MEDS ORDERED: CLOPIDOGREL 75 MG TAB PO SCH (09:00)
[2017-04-15] MEDS ORDERED: LISINOPRIL 5 MG TAB PO SCH (09:00)
--- NOTE | 2017-04-15 09:54 | RADRPT ---
Echocardiogram Report Patient Name: RILEY IRAHETA Gender: Male Date: 1970 Study Date: 15-Apr-2017 Intranet Support: Location: E Ref. Physician: TAY BURR Quality: Good Procedures: Transthoracic echocardiogram with complete 2D, M-Mode, and doppler examination. Indications: Chest Pain. 2D/M Mode Doppler Measurement Value Normal Ranges Measurement Value Normal Ranges LVIDd 2D 4.7 3.5 - 5.6 cm AV Peak Kunal 1.1 m/sec LVIDs 2D 3.0 2.1 - 4.1 cm AV Peak PG 5.0 mmHg FS 2D 36.8 % LVOT Peak Kunal 0.9 m/sec LVPWd 2D 1.0 0.6 - 1.1 cm LVOT Peak PG 4.0 mmHg IVSd 2D 1.0 0.6 - 1.1 cm MV E Peak Kunal 0.7 m/sec IVS/LVPW 2D 1.0 MV A Peak Kunal 0.4 m/sec AoR Diam 2D 1.9 2.0 - 3.7 cm MV E/A 1.8 LA/Ao 2D 2 0 - 1 MV Decel Time 254 msec EDV 2D 103.0 cm3 MV E/A 1.8 ESV 2D 25.9 cm3 TR Peak Kunal 2.3 m/sec LA Dimen 2D 3.1 2.3 - 4.0 cm TR Peak PG 21.0 mmHg Findings Left Ventricle: Normal left ventricular systolic function. Normal left ventricular cavity size. Normal left ventricular wall thickness. Ejection fraction is visually estimated at 60 %. Tissue Doppler/Mitral Doppler indices are within normal limits. Right Ventricle: Normal right ventricular size. Normal right ventricular systolic function. Left Atrium: The left atrium is normal in size. Right Atrium: The right atrium is normal in size. Mitral Valve: Normal appearance of the mitral valve. Normal appearance and function of the mitral valve with trace physiologic regurgitation. Aortic Valve: Normal appearance of the aortic valve. No significant aortic stenosis or insufficiency. Tricuspid Valve: Normal appearance of the tricuspid valve. Estimated peak PA systolic pressure 24 mmHg. There is trace to mild tricuspid regurgitation. Pericardium: Normal pericardium with no significant pericardial effusion. Aorta: Normal aortic root. IVC: Normal size and normal respiratory collapse consistent with normal right atrial pressure. Conclusions Normal left ventricular systolic function. Normal left ventricular cavity size. Normal left ventricular wall thickness. Ejection fraction is visually estimated at 60 %. Tissue Doppler/Mitral Doppler indices are within normal limits. No significant valvular stenosis or regurgitation seen. Estimated peak PA systolic pressure 24 mmHg based on RA pressure of 3 mmHg. Electronically Signed By: Louis Campbell 15-Apr-2017 09:54:03 -0800 Patient Name: RILEY IRAHETA Study Date: 15-Apr-2017 [id number]
--- NOTE | 2017-04-15 09:54 | RADRPT ---
Echocardiogram Report Patient Name: RILEY IRAHETA Gender: Male Date: 1970 Study Date: 15-Apr-2017 Oxygen Equipment Technician: Location: E Ref. Physician: TAY BURR Quality: Good Procedures: Transthoracic echocardiogram with complete 2D, M-Mode, and doppler examination. Indications: Chest Pain. 2D/M Mode Doppler Measurement Value Normal Ranges Measurement Value Normal Ranges LVIDd 2D 4.7 3.5 - 5.6 cm AV Peak Kunal 1.1 m/sec LVIDs 2D 3.0 2.1 - 4.1 cm AV Peak PG 5.0 mmHg FS 2D 36.8 % LVOT Peak Kunal 0.9 m/sec LVPWd 2D 1.0 0.6 - 1.1 cm LVOT Peak PG 4.0 mmHg IVSd 2D 1.0 0.6 - 1.1 cm MV E Peak Kunal 0.7 m/sec IVS/LVPW 2D 1.0 MV A Peak Kunal 0.4 m/sec AoR Diam 2D 1.9 2.0 - 3.7 cm MV E/A 1.8 LA/Ao 2D 2 0 - 1 MV Decel Time 254 msec EDV 2D 103.0 cm3 MV E/A 1.8 ESV 2D 25.9 cm3 TR Peak Kunal 2.3 m/sec LA Dimen 2D 3.1 2.3 - 4.0 cm TR Peak PG 21.0 mmHg Findings Left Ventricle: Normal left ventricular systolic function. Normal left ventricular cavity size. Normal left ventricular wall thickness. Ejection fraction is visually estimated at 60 %. Tissue Doppler/Mitral Doppler indices are within normal limits. Right Ventricle: Normal right ventricular size. Normal right ventricular systolic function. Left Atrium: The left atrium is normal in size. Right Atrium: The right atrium is normal in size. Mitral Valve: Normal appearance of the mitral valve. Normal appearance and function of the mitral valve with trace physiologic regurgitation. Aortic Valve: Normal appearance of the aortic valve. No significant aortic stenosis or insufficiency. Tricuspid Valve: Normal appearance of the tricuspid valve. Estimated peak PA systolic pressure 24 mmHg. There is trace to mild tricuspid regurgitation. Pericardium: Normal pericardium with no significant pericardial effusion. Aorta: Normal aortic root. IVC: Normal size and normal respiratory collapse consistent with normal right atrial pressure. Conclusions Normal left ventricular systolic function. Normal left ventricular cavity size. Normal left ventricular wall thickness. Ejection fraction is visually estimated at 60 %. Tissue Doppler/Mitral Doppler indices are within normal limits. No significant valvular stenosis or regurgitation seen. Estimated peak PA systolic pressure 24 mmHg based on RA pressure of 3 mmHg. Electronically Signed By: Louis Campbell 15-Apr-2017 09:54:03 -0800 Patient Name: RILEY IRAHETA Study Date: 15-Apr-2017 [id number]
--- NOTE | 2017-04-15 10:09 | CONS ---
Date/Time of Note Date/Time of Note DATE: 04/15/17 TIME: 10:01 Assessment/Plan Assessment/Plan Chief Complaint/Hosp Course Chest pain: Likely angina but again in setting of elevated BP (180/120) just as in October of this year when MPI was normal. He has an intermediate RCA lesion by cath 05/25 though again MPI 10/24 did not show ischemia. Trops, EKG, echo are all normal here. The two reasonable options would be continued medical therapy vs cardiac cath with iFR or FFR of the mid RCA lesion. The pt prefers continued medical management at this time which I believe is reasonable h/o CAD s/p STEMI/multiple PCIs: last cath 05/25 reviewed and the pt has an intermediate 50% distal RCA lesion. MPI 10/24 negative HTN HL Active smoker: counseled on cessation -if ambulates without symptoms, ok for d/c -ASA, plavix, statin -metoprolol 25mg BID -lisinopril -add imdur 30mg on discharge -outpt cardiology follow-up Problems: Consultation Date/Type/Reason Admit Date/Time Date of Consultation: Apr 15, 2017 Type of Consultation: Cardiology Referring Provider: TAY BURR MD Hx of Present Illness 46 yo M with a h/o CAD s/p PCI x 5 including lateral STEMI 05/2016 s/p PCI of diag, HTN, active smoker, who presented with chest pain. He was seen here 10/24 for chest pain in the setting of elevated BP. MPI at that time was normal. He notes that he has been doing very well since then. No exertional chest pain or SOB. He was watching TV yesterday when he felt warm and started to have chills. He then noticed his BP was 180/120 and he had chest pressure similar to his angina. He called paramedics and when they arrived, he was given NTG spray which relieved his pain. He has been asymptomatic since. BPs here have been controlled. Trops negative. EKG unremarkable. No SOB, orthopnea, PND, edema. per HPI Past Medical History per hPI Past Surgical History Past Surgical Hx: angioplasty Social History Smoking Status: Current every day smoker Exam/Review of Systems Vital Signs Vitals Vital Signs Date Time Temp Pulse Resp B/P Pulse Ox O2 Delivery O2 Flow Rate FiO2 04/15/17 08:09 61 04/15/17 07:45 98.1 20 123/59 98 04/14/17 17:34 Room Air Intake and Output 04/14/17 04/14/17 04/15/17 15:00 23:00 07:00 Intake Total 550 ml Balance 550 ml Exam Constitutional: alert, oriented, well developed Psych: nl mood/affect, no complaints Head: atraumatic, normocephalic Neck: supple, No jvd Respiratory: clear to auscultation, No crackles/rales Cardiovascular: regular rate and rhythm, No edema, No systolic murmur Gastrointestinal: non-tender, soft Neurological: nl mental status, nl speech Results Result Diagram: 04/14/17 1255 04/15/17 0704 Results 24 hrs Laboratory Tests Test 04/14/17 12:55 04/14/17 18:59 04/15/17 00:19 04/15/17 07:04 White Blood Count 9.5 # Red Blood Count 5.04 Hemoglobin 14.5 Hematocrit 42.3 Mean Corpuscular Volume 83.9 Mean Corpuscular Hemoglobin 28.8 L Mean Corpuscular Hemoglobin Concent 34.3 Red Cell Distribution Width 12.7 Platelet Count 298 Mean Platelet Volume 8.6 Neutrophils % 74.8 Lymphocytes % 15.9 Monocytes % 8.0 Eosinophils % 0.2 Basophils % 0.8 Nucleated Red Blood Cells % 0.0 Neutrophils # 7.1 Lymphocytes # 1.5 Monocytes # 0.8 Eosinophils # 0.0 Basophils # 0.1 Nucleated Red Blood Cells # 0.0 Sodium Level 140 139 Potassium Level 3.6 4.4 Chloride Level 107 104 Carbon Dioxide Level 23 27 Anion Gap 14 12 Blood Urea Nitrogen 11 15 Creatinine 0.65 0.79 Glucose Level 100 92 Hemoglobin A1c 5.4 Calcium Level 7.9 L 8.5 Creatine Kinase 113 86 80 Creatine Kinase Index 0.6 0.7 0.8 Creatinine Kinase MB (Mass) 0.69 0.60 0.65 Troponin I < 0.012 < 0.012 < 0.012 Triglycerides Level 468 H Cholesterol Level 160 LDL Cholesterol, Calculated 30 HDL Cholesterol 36 Cholesterol/HDL Ratio 4.4 Magnesium Level 2.1 Medications Medications Current Medications Aspirin (Aspirin) 81 mg DAILY PO Last administered on 04/15/17t 08:47; Admin Dose 81 MG; Start 04/15/17 at 09:00 Atorvastatin Calcium (Lipitor) 80 mg HS PO Last administered on 04/14/17 21:32 ; Admin Dose 80 MG; Start 04/14/17 at 21:00 Clopidogrel Bisulfate (plaVIX) 75 mg DAILY PO Last administered on 04/15/17 08 :48; Admin Dose 75 MG; Start 04/15/17 at 09:00 Gemfibrozil (Lopid) 600 mg BID PO Last administered on 04/15/17 08:48; Admin Dose 600 MG; Start 04/14/17 at 21:00 Acetaminophen/ Hydrocodone Bitart ([place] (10/325)) 1 tab Q6H PRN PO PAIN Last administered on 04/14/17 17:06; Admin Dose 1 TAB; Start 04/14/17 at 14:30 Lisinopril (Zestril) 5 mg DAILY PO Last administered on 04/15/17 08:49; Admin Dose 5 MG; Start 04/15/17 at 09:00 Metoprolol Tartrate (Lopressor) 25 mg BID PO Last administered on 04/15/17 08: 48; Admin Dose 25 MG; Start 04/14/17 at 21:00 Fish Oil (Fish Oil) 2,000 mg BID PO Last administered on 04/15/17 08:47; Admin Dose 2,000 MG; Start 04/14/17 at 21:00 Pantoprazole (Protonix Tab) 40 mg DAILY@06 PO Last administered on 04/15/17 06 :00; Admin Dose 40 MG; Start 04/15/17 at 06:00 Hydrocortisone (Hydrocortisone 0.5% Cr) 1 applic TID TOP Last administered on 04/15/17 08:49; Admin Dose 1 APPLIC; Start 04/14/17 at 22:00 STEPHANI DICKENS Apr 15, 2017 10:09
[2017-04-15] MEDS ORDERED: ISOSORBIDE MONONITRATE(SR)30 MG TAB PO SCH (10:30)
[2017-04-15] MEDS ORDERED: ISOS30TA5 PO (12:37)
--- NOTE | 2017-04-15 12:42 | DS ---
Date/Time of Note Date/Time of Note DATE: 04/15/17 TIME: 12:38 Discharge Summary Admission/Discharge Info Admit Date/Time Apr 14, 2017 at 14:09 Discharge Date/Time Discharge Diagnosis 1. Angina pectoris, medical management, add imdur, follow up with cardiology 2. CAD s/p PCI x 5 including lateral STEMI 05/2016 s/p PCI of diag, on aspirin, plavix, metoprolol, imdur and lipitor 3. HTN, controlled 4. Dyslipidemia, on lopid and lipitor 5. active smoker, advise to quit Patient Condition: Stable Hospital Course 46 yo M with a h/o CAD s/p PCI x 5 including lateral STEMI 05/2016 s/p PCI of diag, HTN, active smoker, who presented with chest pain. He was seen here 10/24 for chest pain in the setting of elevated BP. MPI at that time was normal. He notes that he has been doing very well since then. No exertional chest pain or SOB. He was watching TV yesterday when he felt warm and started to have chills. He then noticed his BP was 180/120 and he had chest pressure similar to his angina. He called paramedics and when they arrived, he was given NTG spray which relieved his pain. He has been asymptomatic since. BPs here have been controlled. Trops negative. EKG unremarkable. No SOB, orthopnea, PND, edema. [employer] Att[employer] Dr. Campbell saw the patient and discussed treatment options with the patient that they decide to treat medically instead of doing coronary angiography now. Imdur is added. Patient will follow up with cardiology outpatient. Home Meds Active Scripts Isosorbide Mononitrate* (Isosorbide Mononitrate*) 30 Mg Tab.er.24h, 30 MG PO DAILY for 30 Days Prov:LUISA WEISS MD 04/15/17 Gemfibrozil* (Gemfibrozil*) 600 Mg Tablet, 600 MG PO BID for 30 Days, TAB Prov:KESHA HERNANDEZ NP 11/08/16 [place]-3/Dha/Epa/Fish Oil (FISH OIL EC 1,000 MG SOFTGEL) 1 Each Capsule.dr, 2000 MG PO BID for 30 Days Prov:KESHA HERNANDEZ NP 11/08/16 Metoprolol Tartrate* (Lopressor*) 25 Mg Tab, 25 MG PO BID for 30 Days, TAB 1 Refill Prov:DOUGLAS NGUYEN MD 06/08/16 Lisinopril* (Lisinopril*) 5 Mg Tablet, 5 MG PO DAILY for 30 Days, TAB 1 Refill Prov:DOUGLAS NGUYEN MD 06/08/16 Clopidogrel Bisulfate (Clopidogrel) 75 Mg Tablet, 75 MG PO DAILY for 30 Days, TAB 1 Refill Prov:DOUGLAS NGUYEN MD 06/08/16 Atorvastatin* (Atorvastatin*) 80 Mg Tablet, 80 MG PO HS for 30 Days, TAB 1 Refill Prov:DOUGLAS NGUYEN MD 06/08/16 Aspirin (Aspirin) 81 Mg Chew, 81 MG PO DAILY for 30 Days, TAB 1 Refill Prov:DOUGLAS NGUYEN MD 06/08/16 Reported Medications Hydrocodone/Acetaminophen ([place] 10-325 Tablet) 1 Each Tablet, 1 EACH PO Y for PAIN, TAB 11/07/16 Pantoprazole* (Pantoprazole*) 40 Mg Tablet.dr, 40 MG PO DAILY, TAB 11/07/16 Follow-up Plan PCP and cardiology in one week Primary Care Provider Not On Staff Doctor Pending Labs Laboratory Tests Test 04/14/17 12:55 04/14/17 18:59 04/15/17 00:19 04/15/17 07:04 White Blood Count 9.510^3/ul (4.8-10.8) Red Blood Count 5.0410^6/ul (4.70-6.10) Hemoglobin 14.5g/dl (14.0-18.0) Hematocrit 42.3% (42.0-52.0) Mean Corpuscular Volume 83.9fl (82.0-101.0) Mean Corpuscular Hemoglobin 28.8pg (29.0-33.0) Mean Corpuscular Hemoglobin Concent 34.3g/dl (32.0-37.0) Red Cell Distribution Width 12.7% (11.5-14.5) Platelet Count 50995^3/UL (140-415) Mean Platelet Volume 8.6fl (7.4-10.4) Neutrophils % 74.8% (39.0-77.0) Lymphocytes % 15.9% (15.0-51.0) Monocytes % 8.0% (0.0-11.0) Eosinophils % 0.2% (0.0-7.0) Basophils % 0.8% (0.0-2.0) Nucleated Red Blood Cells % 0.0/100WBC (0.0-0.0) Neutrophils # 7.110^3/ul (1.6-7.5) Lymphocytes # 1.510^3/ul (0.8-2.9) Monocytes # 0.810^3/ul (0.3-0.9) Eosinophils # 0.010^3/ul (0.0-0.5) Basophils # 0.110^3/ul (0.0-0.1) Nucleated Red Blood Cells # 0.010^3/ul (0.0-0.0) Sodium Level 140mmol/L (135-144) 139mmol/L (135-144) Potassium Level 3.6mmol/L (3.5-5.1) 4.4mmol/L (3.5-5.1) Chloride Level 107mmol/L (97-110) 104mmol/L (97-110) Carbon Dioxide Level 23mmol/L (21-31) 27mmol/L (21-31) Anion Gap 14 (8-16) 12 (8-16) Blood Urea Nitrogen 11mg/dl (7-20) 15mg/dl (7-20) Creatinine 0.65mg/dl (0.61-1.24) 0.79mg/dl (0.61-1.24) Glucose Level 100mg/dl (70-220) 92mg/dl (70-220) Hemoglobin A1c 5.4% (0-5.9) Calcium Level 7.9mg/dl (8.4-10.2) 8.5mg/dl (8.4-10.2) Creatine Kinase 113IU/L (23-200) 86IU/L (23-200) 80IU/L (23-200) Creatine Kinase Index 0.6 0.7 0.8 Creatinine Kinase MB (Mass) 0.69ng/ml (0.0-2.4) 0.60ng/ml (0.0-2.4) 0.65ng/ml (0.0-2.4) Troponin I < 0.012ng/ml (0.00-0.12) < 0.012ng/ml (0.00-0.12) < 0.012ng/ml (0.00-0.12) Triglycerides Level 468mg/dl (0-149) Cholesterol Level 160mg/dl (100-200) LDL Cholesterol, Calculated 30mg/dl HDL Cholesterol 36mg/dl (27-67) Cholesterol/HDL Ratio 4.4RATIO Magnesium Level 2.1mg/dl (1.7-2.5) LUISA WEISS MD Apr 15, 2017 12:42
== END 2017-04-15 15:16 | disposition home or self-care (01) | DRG 303 ==
LOC: E/R 12:37 → MS4 14:09
PROVIDERS: ADMIT Internal Medicine; ATTEND Internal Medicine
DX: I25.119 Atherosclerotic heart disease of native coronary artery with unspecified angina pectoris (principal); I25.2 Old myocardial infarction; Z72.0 Tobacco use
CPT/HCPCS: 36415; 71010; 80048; 80061; 82550; 82553; 83036; 83735; 84484; 85025; 93005; 93306; 96374; J2405

== ENCOUNTER 2017-08-25 15:22 | Emergency (ER) | END 2017-08-25 15:29 | disposition left against medical advice (07) ==

== ENCOUNTER 2018-02-24 10:19 | Inpatient (IN) | END 2018-02-25 18:15 | disposition home or self-care (01) | DRG 313 ==

== ENCOUNTER 2018-03-09 05:23 | Observation (INO) | END 2018-03-10 13:31 | disposition home or self-care (01) ==

== ENCOUNTER 2018-05-20 13:27 | Emergency (ER) | END 2018-05-20 18:20 | disposition home or self-care (01) ==

== ENCOUNTER 2018-06-03 14:15 | Emergency (ER) | END 2018-06-03 17:26 | disposition left against medical advice (07) ==

== ENCOUNTER 2018-10-21 08:10 | Observation (INO) | payer OTHER ==
[~2018-10-21] VITALS: Ht 170.2 cm; Wt 72.0 kg
[~2018-10-21 08:10] MED LIST changes: -ASPI81TA3 PO; +ASPI81TA52 PO; +ATOR-2 PO; -ATOR80TA75 PO; +CLOP75TA27 PO; -CLOP75TA28 PO; -GEMF600T60 PO; +HYDR-3670 PO; -HYDR-902 PO; -OMEG1CAP55 PO; +PANT40TA3 PO; -PANT40TA4 PO; +RANO500T2 PO
[2018-10-21] MEDS ORDERED: ASPIRIN 325 MG TAB PO STA (08:25)
[2018-10-21] MEDS ORDERED: morphine 4 MG/ML VIAL IV STA ×2 (08:34→12:10)
[2018-10-21] MEDS ORDERED: ONDANSETRON 4 MG INJ IV STA ×2 (08:34→12:10)
[2018-10-21] MEDS: NITROGLYCERIN 2% 1 GM OINT PKT TD STA ×2 (08:38→08:39)
[2018-10-21] MEDS ORDERED: RANO500T2 PO (08:54)
--- NOTE | 2018-10-21 10:42 | ERD ---
ER Documentation Chief Complaint Chief Complaint BIB PARAMEDICS FROM HOME-MID CHEST PAIN RADIATES TO THROAT STRATED AT 2AM HPI This is a 48-year-old male with a history of hypertension, hyperlipidemia with 7 stents in his heart. He said he had some substernal chest pain again that is exactly like prior cardiac pain with shortness of breath and diaphoresis. He had no radiation of pain. He took his nitroglycerin at home but it did not relieve the pain. He says the pain was 8 out of 10 and currently is 2-3 out of 10. ROS All systems reviewed and are negative except as per history of present illness. Medications Home Meds Active Scripts Hydralazine Hcl* (Hydralazine Hcl*) 10 Mg Tablet, 10 MG PO Q8, #15 TAB Prov:RAUL RALPH MD 05/20/18 Reported Medications Ranolazine* (Ranexa*) 500 Mg Tab.sr.12h, 500 MG PO Q12, TAB 10/21/18 Pantoprazole* (Protonix*) 40 Mg Tablet.dr, 40 MG PO DAILY, TAB 02/24/18 Atorvastatin* (Atorvastatin*) 80 Mg Tablet, 80 MG PO QHS, #30 TAB 02/24/18 Metoprolol Tartrate* (Lopressor*) 25 Mg Tab, 25 MG PO BID, #60 TAB 02/24/18 Aspirin (Low Dose Aspirin) 81 Mg Tablet.dr, 81 MG PO DAILY, #30 TAB 02/24/18 Clopidogrel Bisulfate (Clopidogrel) 75 Mg Tablet, 75 MG PO DAILY, #30 TAB 02/24/18 Lisinopril* (Lisinopril*) 5 Mg Tablet, 5 MG PO DAILY, #30 TAB 02/24/18 Discontinued Scripts Ranolazine* (Ranexa*) 500 Mg Tab.sr.12h, 500 MG PO Q12 for 30 Days, #60 TAB 1 Refill Prov:HEATH HATCH 02/25/18 Allergies Allergies: Coded Allergies: No Known Allergy (Unverified , 10/21/18) PMhx/Soc History of Surgery: No Anesthesia Reaction: No Hx Neurological Disorder: No Hx Respiratory Disorders: No Hx Cardiac Disorders: Yes (HTN, high cholesterol, [place] x7 stents) Hx Psychiatric Problems: No Hx Miscellaneous Medical Probl: No Hx Alcohol Use: Yes Hx Substance Use: No Hx Tobacco Use: Yes Smoking Status: Current every day smoker FmHx Family History: coronary disease Physical Exam Vitals Vital Signs Date Temp Pulse Resp B/P (MAP) Pulse Ox O2 O2 Flow FiO2 Time Delivery Rate 10/21/18 76 15 105/76 100 Nasal 09:45 (86) Cannula 10/21/18 Nasal 3 08:15 Cannula 10/21/18 98.2 65 19 128/72 98 08:13 (90) Physical Exam Const: Well-developed, well-nourished Head: Atraumatic, normocephalic Eyes: Normal Conjunctiva, PERRLA, EOMI, normal sclera, no nystagmus ENT: Normal External Ears, Nose and Mouth, moist mucus membranes. Neck: Full range of motion. No meningismus, no lymphadenopathy. Resp: Clear to auscultation bilaterally, no wheezing, rhonchi, rales Cardio: Regular rate and rhythm, no murmurs, S1 S2 present Abd: Soft, non tender x 4, non distended. Normal bowel sounds, no guarding or rebound, no pulsitile abdominal masses or bruits Skin: No petechiae or rashes, no ecchymosis , no maculopapular rash Back: No midline or flank tenderness Ext: No cyanosis, or edema, FROM x 4, normal inspection, neurovascula rly intact x 4 Neur: Awake and alert, STR 5/5 x 4, sensation intact x 4, no focal findings, cerebellum intact Psych: Normal Mood and Affect Result Diagram: 10/21/18 0831 10/21/18 0831 Results 24 hrs Laboratory Tests Test 10/21/18 08:31 White Blood Count 7.6 10^3/ul Red Blood Count 4.82 10^6/ul Hemoglobin 13.5 g/dl Hematocrit 40.9 % Mean Corpuscular Volume 84.9 fl Mean Corpuscular Hemoglobin 28.0 pg Mean Corpuscular Hemoglobin Concent 33.0 g/dl Red Cell Distribution Width 14.1 % Platelet Count 228 10^3/UL Mean Platelet Volume 8.4 fl Immature Granulocytes % 0.400 % Neutrophils % 61.3 % Lymphocytes % 26.1 % Monocytes % 10.3 % Eosinophils % 1.1 % Basophils % 0.8 % Nucleated Red Blood Cells % 0.0 /100WBC Immature Granulocytes # 0.030 10^3/ul Neutrophils # 4.6 10^3/ul Lymphocytes # 2.0 10^3/ul Monocytes # 0.8 10^3/ul Eosinophils # 0.1 10^3/ul Basophils # 0.1 10^3/ul Nucleated Red Blood Cells # 0.0 10^3/ul Prothrombin Time 12.7 Sec Prothrombin Time Ratio 1.0 INR International Normalized Ratio 0.94 Activated Partial Thromboplast Time 26.7 Sec Sodium Level 139 mmol/L Potassium Level 4.0 mmol/L Chloride Level 108 mmol/L Carbon Dioxide Level 25 mmol/L Anion Gap 6 Blood Urea Nitrogen 14 mg/dl Creatinine 0.62 mg/dl Est Glomerular Filtrat Rate mL/min > 60 mL/min Glucose Level 104 mg/dl Calcium Level 8.7 mg/dl Total Bilirubin 0.7 mg/dl Direct Bilirubin 0.00 mg/dl Indirect Bilirubin 0.7 mg/dl Aspartate Amino Transf (AST/SGOT) 27 IU/L Alanine Aminotransferase (ALT/SGPT) 26 IU/L Alkaline Phosphatase 75 IU/L Troponin I < 0.012 ng/ml Total Protein 6.8 g/dl Albumin 3.9 g/dl Globulin 2.90 g/dl Albumin/Globulin Ratio 1.34 Current Medications Medications Dose Sig/Gayle Start Time Status Last (Trade) Ordered Route PRN Stop Time Admin Dose Reason Admin Aspirin 325 mg ONCE STAT 10/21/18 DC 10/21/18 (Aspirin) PO 08:25 08:38 10/21/18 08:26 1 inch ONCE STAT 10/21/18 DC Nitroglycerin TD 08:25 10/21/18 08:26 (Nitroglyceri n 2% Oint) Morphine 4 mg ONCE STAT 10/21/18 DC 10/21/18 Sulfate IV 08:34 08:42 (morphine) 10/21/18 08:35 Ondansetron 4 mg ONCE STAT 10/21/18 DC 10/21/18 HCl (Zofran IV 08:34 08:41 Inj) 10/21/18 08:35 Procedures/MDM EKG: Rate/Rhythm: Normal Sinus Rhythm,NL intervals QRS, ST, QT: NORMAL ND, QRS, QT] Impression: NORMAL EKG Patient: RILEY IRAHETA : 1970 Age: 48 Sex: M MR #: [id number] DOS: 10/21/18 0825 Ordering MD: SONY FIORE DO Location: E/R Room/Bed: PROCEDURE: XR Chest. CLINICAL INDICATION: Chest pain TECHNIQUE: AP portable semi upright chest was obtained. COMPARISON: Chest 05/26/2018 FINDINGS: The heart is within normal limits in size. There is no evidence of pulmonary vascular congestion acute lung consolidation pleural effusion or pneumothorax. IMPRESSION: No evidence of acute cardiopulmonary disease. RPTAT:AAJJ Andrés Borrego Physician Date Time Electronically viewed and signed by Andrés Borrego Physician on 10/21/2018 09:17 BM/ CC: SONY FIORE DO [id number] Patient is high risk cardiac patient Cardiac Admit MDM: Patient's symptoms are concerning for cardiac cause will require inpatient workup and continuous monitoring. Further w/u for ischemia, arrhythmia, PE or dissection will be deferred to the inpatient team. Departure Diagnosis: Primary Impression: Chest pain Chest pain type: unspecified Qualified Codes: R07.9 - Chest pain, unspecified Condition: Stable SONY FIORE DO October 21, 2018 10:42
[2018-10-21] MEDS ORDERED: ONDANSETRON 4 MG INJ IV PRN ×2 (11:00→14:30)
[2018-10-21] MEDS ORDERED: ACETAMINOPHEN 325 MG TAB PO PRN ×2 (11:00→14:30)
[2018-10-21] MEDS ORDERED: NACL 0.9% 3 ML SYG IV SCH (14:30)
--- NOTE | 2018-10-21 14:35 | HP ---
Date/Time of Note Date/Time of Note DATE: 10/21/18 TIME: 14:23 Assessment/Plan VTE Prophylaxis Pharmacological prophylaxis: NA/contraindicated Pharm contraindication: low risk/ambulating Lines/Catheters IV Catheter Type (from Nrs): Saline Lock Assessment/Plan Assessment/Plan 48 yo man history of CAD presents with acute chest pressure #Chest pain #CAD - Will trend trops. Initial set negative - EKG on admission not concerning for acute ischemia - May have been an episode of PND; but patient does not report other heart failure symptoms and chest pressure has still persisted. - Does not currently appear fluid overloaded. - Low suspicion for ACS. Last stress test was Jun 2018. - Also not consistent with typical angina. This event was not exertional. - Will continue all home meds. - Consult Dr. Campbell - Admit to tele. GI: None DVT: SCDs Result Diagram: 10/21/1883010/21/18830 HPI/ROS Admit Date/Time Admit Date/Time 21 Oct 2018 Hx of Present Illness Mr. Beal is a pleasant 48 yo man with history of CAD and stents (patient reports up to 7) who presents with acute chest pain. Symptoms started at 2 am and woke him from sleep. Reports pressure-like chest pain, a choking sensation, and palpitations. Measured his own blood pressure 131/89 and pulse 104. Took ASA 81 and sublingual NG two tabs 6 mins apart with gradual improvement in palpitations but not chest pressure. The chest pressure was not positional and did not improve with sitting or standing up. He called the ambulance and came to the ED. He follows Dr. Quan at [facility] who has placed most of his stents. Last coronary angiogram was November 2017 and last stress test was Jun 2018, which was negative for ischemia. Last hospitalized for chest pain here at [facility] 03/11 018. He says he does have mild exertional dyspnea at baseline but does not have angina with exertion. He says he can quickly climb a flight of stairs without SOB or chest pain. In the ED he was afebrile, vitals unremarkable. Labs unremkarable. Initial troponin negative. I reviewed the EKG and it is negative for ischemic changes. CXR also was normal. ROS Denies recent fever, chills, weight loss, night sweats, orthopnea, paroxysmal nocturnal dyspnea, anorexia, dysphagia, odynophagia, sore throat, cough, dyspnea at rest, vomiting, abdominal pain, diarrhea, constipation, dysuria, hematuria. PMH/Family/Social Past Medical History coronary artery disease Medications Current Medications Ondansetron HCl (Zofran Inj) 4 mg ER BRIDGE PRN IV NAUSEA/VOMITING; Start 10/21/18 at 11:00; Stop 10/22/18 at 10:59 Acetaminophen (Tylenol Tab) 650 mg ER BRIDGE PRN PO .MILD PAIN 1-3 OR TEMP; Start 10/21/18 at 11:00; Stop 10/22/18 at 10:59 IV Flush (NS 3 ml) 3 ml PER PROTOCOL IV ; Start 10/21/18 at 14:30 Ondansetron HCl (Zofran Inj) 4 mg Q6H PRN IV NAUSEA/VOMITING; Start 10/21/18 at 14:30 Acetaminophen (Tylenol Tab) 650 mg Q6H PRN PO .PAIN 1-3 OR TEMP; Start 10/21/18 at 14:30 Aspirin (Halfprin) 81 mg DAILY PO ; Start 10/22/18 at 09:00 Atorvastatin Calcium (Lipitor) 80 mg QHS PO ; Start 10/21/18 at 21:00 Clopidogrel Bisulfate (plaVIX) 75 mg DAILY PO ; Start 10/22/18 at 09:00 Hydralazine HCl (Apresoline) 10 mg Q8 PO ; Start 10/21/18 at 22:00 Lisinopril (Zestril) 5 mg DAILY PO ; Start 10/22/18 at 09:00 Metoprolol Tartrate (Lopressor) 25 mg BID PO ; Start 10/21/18 at 21:00 Pantoprazole (Protonix Tab) 40 mg DAILY@0600 PO ; Start 10/22/18 at 06:00 Ranolazine (Ranexa) 500 mg Q12 PO ; Start 10/21/18 at 21:00 Coded Allergies: No Known Allergy (Unverified , 10/21/18) Past Surgical History Past Surgical Hx: angioplasty, other Family History Significant Family History: no pertinent family hx Social History Alcohol Use: occasionally (<7 drinks per week) Smoking Status: Current every day smoker (smokes E cigarettes several time per day for the past year. Previously smoked as much as 3 ppd regular cigarettes. ) Drug Use: none Exam/Review of Systems Vital Signs Vitals Vital Signs Date Temp Pulse Resp B/P (MAP) Pulse Ox O2 O2 Flow FiO2 Time Delivery Rate 10/21/18 8 15 103/77 98 Nasal 11:40 (86) Cannula 10/21/18 3 08:15 10/21/18 98.2 08:13 Exam Exam Gen: Well developed man slightly uncomfortable appearing in rney Eyes: PERRL, no icterus HEENT: Moist mucous membranes, clear oropharynx Neck: JVP at about 4 mmH2O. No lymphadenopathy. Card: Regular rate and rhythm, no murmurs Pulm: Clear to auscultation bilaterally. Abd: Soft, nontender, nondistended. Ext: No cyanosis/clubbing/edema Skin: warm, dry, well perfused. RAUL RALPH MD October 21, 2018 14:35
--- NOTE | 2018-10-21 17:07 | CONS ---
Assessment/Plan Assessment/Plan Hospital Course (Demo Recall) Chest pain: Chronic and unclear if true angina. His symptoms never resolved even after stents 09/25. Since then he has had a repeat normal cath 11/25 and normal stress test 12/25, late 2017, and again 06/2018. I dont see the benefit of repeat stress testing. Cardiac CTA is an option but apparently he had one at [facility] and was told it was inconclusive (presumably due to his stents). As such I would just trend trops and if negative and no recurrence, can d/c home with outpt cardiology follow up. Would also consider other workup including GI such as EGD but as outpt h/o CAD s/p STEMI/multiple PCIs: last cath 11/25 reportedly without obstructive lesions and stress test normal 12/25 HL Active smoker: counseled on cessation -trend trops. Home in am if no symptoms and trops negative -if trops positive, of course repeat cath -continue ASA/plavix -lipitor 80mg -metoprolol 25mg BID -no longer taking lisinopril per pt -increase to ranexa 1000mg BID Consultation Date/Type/Reason Admit Date/Time 21 Oct 2018 Type of Consult Cardiology Date/Time of Note DATE: 10/21/18 TIME: 16:51 Hx of Present Illness 48 known to me from prior admissions with a h/o chronic chest pain, CAD s/p PCI x 7 including lateral STEMI 05/2016 s/p PCI of [facility] and PCI 09/25, HTN, active smoker, who presents with chest pain. 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 He was told by his hose builder that he may do another cardiac cath if he has recurrence of his symptoms. He was doing well until this am when he woke up and felt chest pain. He took NTG without effect. The only thing that helped was morphine. per hPI Past Medical History per HPI Home Meds Active Scripts Hydralazine Hcl* (Hydralazine Hcl*) 10 Mg Tablet, 10 MG PO Q8, #15 TAB Prov:RAUL RALPH MD 05/20/18 Reported Medications Ranolazine* (Ranexa*) 500 Mg Tab.sr.12h, 500 MG PO Q12, TAB 10/21/18 Pantoprazole* (Protonix*) 40 Mg Tablet.dr, 40 MG PO DAILY, TAB 02/24/18 Atorvastatin* (Atorvastatin*) 80 Mg Tablet, 80 MG PO QHS, #30 TAB 02/24/18 Metoprolol Tartrate* (Lopressor*) 25 Mg Tab, 25 MG PO BID, #60 TAB 02/24/18 Aspirin (Low Dose Aspirin) 81 Mg Tablet.dr, 81 MG PO DAILY, #30 TAB 02/24/18 Clopidogrel Bisulfate (Clopidogrel) 75 Mg Tablet, 75 MG PO DAILY, #30 TAB 02/24/18 Lisinopril* (Lisinopril*) 5 Mg Tablet, 5 MG PO DAILY, #30 TAB 02/24/18 Discontinued Scripts Ranolazine* (Ranexa*) 500 Mg Tab.sr.12h, 500 MG PO Q12 for 30 Days, #60 TAB 1 Refill Prov:HEATH HATCHLorri 02/25/18 Medications Current Medications Ondansetron HCl (Zofran Inj) 4 mg ER BRIDGE PRN IV NAUSEA/VOMITING; Start 10/21/18 at 11:00; Stop 10/22/18 at 10:59 Acetaminophen (Tylenol Tab) 650 mg ER BRIDGE PRN PO .MILD PAIN 1-3 OR TEMP; Start 10/21/18 at 11:00; Stop 10/22/18 at 10:59 IV Flush (NS 3 ml) 3 ml PER PROTOCOL IV ; Start 10/21/18 at 14:30 Ondansetron HCl (Zofran Inj) 4 mg Q6H PRN IV NAUSEA/VOMITING; Start 10/21/18 at 14:30 Acetaminophen (Tylenol Tab) 650 mg Q6H PRN PO .PAIN 1-3 OR TEMP; Start 10/21/18 at 14:30 Aspirin (Halfprin) 81 mg DAILY PO ; Start 10/22/18 at 09:00 Atorvastatin Calcium (Lipitor) 80 mg QHS PO ; Start 10/21/18 at 21:00 Clopidogrel Bisulfate (plaVIX) 75 mg DAILY PO ; Start 10/22/18 at 09:00 Hydralazine HCl (Apresoline) 10 mg Q8 PO ; Start 10/21/18 at 22:00 Lisinopril (Zestril) 5 mg DAILY PO ; Start 10/22/18 at 09:00 Metoprolol Tartrate (Lopressor) 25 mg BID PO ; Start 10/21/18 at 21:00 Pantoprazole (Protonix Tab) 40 mg DAILY@0600 PO ; Start 10/22/18 at 06:00 Ranolazine (Ranexa) 500 mg Q12 PO ; Start 10/21/18 at 21:00 Allergies: Coded Allergies: No Known Allergy (Unverified , 10/21/18) Past Surgical History Past Surgical Hx: angioplasty, other Social History Alcohol Use: occasionally (<7 drinks per week) Smoking Status: Current every day smoker (smokes E cigarettes several time per day for the past year. Previously smoked as much as 3 ppd regular cigarettes. ) Drug Use: none Exam/Review of Systems Vital Signs Vitals Vital Signs Date Temp Pulse Resp B/P (MAP) Pulse Ox O2 O2 Flow FiO2 Time Delivery Rate 10/21/18 66 18 111/69 100 Room Air 16:35 (83) 10/21/18 3 08:15 10/21/18 98.2 08:13 Exam Constitutional: alert, oriented Psych: no complaints, nl mood/affect Head: normocephalic, atraumatic Eyes: nl conjunctiva Neck: No jvd Respiratory: clear to auscultation; No crackles/rales Cardiovascular: regular rate and rhythm; No edema Gastrointestinal: soft, non-tender; No distended Musculoskeletal: nl extremities to inspection Neurological: nl mental status, nl speech Labs Result Diagram: 10/21/18 0831 10/21/18 0831 Results 24hrs Laboratory Tests Test 10/21/18 08:31 White Blood Count 7.6 Red Blood Count 4.82 Hemoglobin 13.5 L Hematocrit 40.9 L Mean Corpuscular Volume 84.9 Mean Corpuscular Hemoglobin 28.0 L Mean Corpuscular Hemoglobin Concent 33.0 Red Cell Distribution Width 14.1 Platelet Count 228 Mean Platelet Volume 8.4 Immature Granulocytes % 0.400 Neutrophils % 61.3 Lymphocytes % 26.1 Monocytes % 10.3 Eosinophils % 1.1 Basophils % 0.8 Nucleated Red Blood Cells % 0.0 Immature Granulocytes # 0.030 Neutrophils # 4.6 Lymphocytes # 2.0 Monocytes # 0.8 Eosinophils # 0.1 Basophils # 0.1 Nucleated Red Blood Cells # 0.0 Prothrombin Time 12.7 Prothrombin Time Ratio 1.0 INR International Normalized Ratio 0.94 Activated Partial Thromboplast Time 26.7 Sodium Level 139 Potassium Level 4.0 Chloride Level 108 Carbon Dioxide Level 25 Anion Gap 6 Blood Urea Nitrogen 14 Creatinine 0.62 Est Glomerular Filtrat Rate mL/min > 60 Glucose Level 104 Calcium Level 8.7 Total Bilirubin 0.7 Direct Bilirubin 0.00 Indirect Bilirubin 0.7 Aspartate Amino Transf (AST/SGOT) 27 Alanine Aminotransferase (ALT/SGPT) 26 Alkaline Phosphatase 75 Troponin I < 0.012 Total Protein 6.8 Albumin 3.9 Globulin 2.90 Albumin/Globulin Ratio 1.34 Medications Medications Current Medications Ondansetron HCl (Zofran Inj) 4 mg ER BRIDGE PRN IV NAUSEA/VOMITING; Start 10/21/18 at 11:00; Stop 10/22/18 at 10:59 Acetaminophen (Tylenol Tab) 650 mg ER BRIDGE PRN PO .MILD PAIN 1-3 OR TEMP; Start 10/21/18 at 11:00; Stop 10/22/18 at 10:59 IV Flush (NS 3 ml) 3 ml PER PROTOCOL IV ; Start 10/21/18 at 14:30 Ondansetron HCl (Zofran Inj) 4 mg Q6H PRN IV NAUSEA/VOMITING; Start 10/21/18 at 14:30 Acetaminophen (Tylenol Tab) 650 mg Q6H PRN PO .PAIN 1-3 OR TEMP; Start 10/21/18 at 14:30 Aspirin (Halfprin) 81 mg DAILY PO ; Start 10/22/18 at 09:00 Atorvastatin Calcium (Lipitor) 80 mg QHS PO ; Start 10/21/18 at 21:00 Clopidogrel Bisulfate (plaVIX) 75 mg DAILY PO ; Start 10/22/18 at 09:00 Hydralazine HCl (Apresoline) 10 mg Q8 PO ; Start 10/21/18 at 22:00 Lisinopril (Zestril) 5 mg DAILY PO ; Start 10/22/18 at 09:00 Metoprolol Tartrate (Lopressor) 25 mg BID PO ; Start 10/21/18 at 21:00 Pantoprazole (Protonix Tab) 40 mg DAILY@0600 PO ; Start 10/22/18 at 06:00 Ranolazine (Ranexa) 500 mg Q12 PO ; Start 10/21/18 at 21:00 STEPHANI DICKENS October 21, 2018 17:03
[2018-10-21 18:06] VITALS: Ht 170.2 cm; Wt 72.0 kg
[2018-10-21 18:10] VITALS: PULSE 56
[2018-10-21 18:23] VITALS: BP 129/81; PULSE 55; RESP 18
[2018-10-21 19:59] VITALS: BP 114/66; PULSE 62; RESP 18
[2018-10-21] MEDS ORDERED: NITROGLYCERIN (SL) 0.4 MG TAB SL PRN (20:30)
[2018-10-21 20:49] VITALS: PULSE 74
[2018-10-21] MEDS: METOPROLOL 25 MG TAB PO SCH (21:00)
[2018-10-21] MEDS ORDERED: RANOLAZINE (SR) 500 MG TAB PO SCH (21:00)
[2018-10-21] MEDS ORDERED: ATORVASTATIN 80 MG TAB PO SCH (21:00)
[2018-10-21] MEDS: RANOLAZINE (SR) 500 MG TAB PO SCH (21:22)
[2018-10-21] MEDS ORDERED: LORAZEPAM 2 MG INJ IV ONE (22:00)
[2018-10-21 23:56] VITALS: BP 117/73; PULSE 63; RESP 20
[2018-10-22] VITALS: PULSE 65
[2018-10-22 04:00] VITALS: BP 94/50; PULSE 68; RESP 18
[2018-10-22 04:18] VITALS: PULSE 75
[2018-10-22] MEDS ORDERED: PANTOPRAZOLE (EC) 40 MG TAB PO SCH (06:00)
[2018-10-22 07:26] VITALS: BP 104/58; PULSE 60; RESP 16
[2018-10-22 08:21] VITALS: PULSE 62
[2018-10-22] MEDS ORDERED: LISINOPRIL 5 MG TAB PO SCH (09:00)
[2018-10-22] MEDS ORDERED: CLOPIDOGREL 75 MG TAB PO SCH (09:00)
[2018-10-22] MEDS ORDERED: ASPIRIN (EC) 81 MG TAB PO SCH (09:00)
[2018-10-22] MEDS: RANOLAZINE (SR) 500 MG TAB PO SCH (09:38)
[2018-10-22] MEDS: METOPROLOL 25 MG TAB PO SCH (09:38)
[2018-10-22 11:38] VITALS: BP 94/54; PULSE 64; RESP 16
--- NOTE | 2018-10-22 11:47 | PDOCDIS ---
Discharge Instructions DIAGNOSIS Discharge Diagnosis Panic attack CONDITION [id number] Patient Condition: [id number] Good HOME CARE INSTRUCTIONS: [id number] Diet Instructions: [id number] Regular ACTIVITY: [id number] Activity Restrictions: [id number] No Restrictions FOLLOW UP/APPOINTMENTS Follow-up Plan 1. Continue to take all medications as prescribed. 2. 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 Quan as scheduled. 3. Return to the emergency room if you develop pressure-like chest pain that does not resolve with rest and nitroglycerine. RAUL RALPH MD October 22, 2018 11:47
--- NOTE | 2018-10-22 15:38 | DS ---
Date/Time of Note Date/Time of Note DATE: 10/22/18 TIME: 15:36 Discharge Summary Admission/Discharge Info Admit Date/Time October 21, 2018 at 10:51 Discharge Date/Time October 22, 2018 at 13:59 Discharge Diagnosis Panic attack Patient Condition: Good Consults Dr. Campbell, cardiology Procedures None Hx of Present Illness Mr. Beal is a pleasant 48 yo man with history of CAD and stents (patient reports up to 7) who presents with acute chest pain. Symptoms started at 2 am and woke him from sleep. Reports pressure-like chest pain, a choking sensation, and palpitations. Measured his own blood pressure 131/89 and pulse 104. Took ASA 81 and sublingual NG two tabs 6 mins apart with gradual improvement in palpitations but not chest pressure. The chest pressure was not positional and did not improve with sitting or standing up. He called the ambulance and came to the ED. He follows Dr. Quan at [facility] who has placed most of his stents. Last coronary angiogram was November 2017 and last stress test was Jun 2018, which was negative for ischemia. Last hospitalized for chest pain here at [facility] 03/2018. He says he does have mild exertional dyspnea at baseline but does not have angina with exertion. He says he can quickly climb a flight of stairs without SOB or chest pain. In the ED he was afebrile, vitals unremarkable. Labs unremkarable. Initial troponin negative. I reviewed the EKG and it is negative for ischemic changes. CXR also was normal. Hospital Course ACS was considered very unlikely. Trops were trended x3 and were negative. EKG on admission did not show evidence of ischemia. Notably, the patient did continue to have chest pressure and a choking sensation after admission for almost 12 hours until bedtime, when he was given Ativan that resolved all symptoms. No events overnight and no recurrence of symptoms. This case was most likely a panic attack or otherwise anxiety related. Home Meds Active Scripts Hydralazine Hcl* (Hydralazine Hcl*) 10 Mg Tablet, 10 MG PO Q8, #15 TAB Prov:RAUL RALPH MD 05/20/18 Reported Medications Ranolazine* (Ranexa*) 500 Mg Tab.sr.12h, 500 MG PO Q12, TAB 5/14/19 Pantoprazole* (Protonix*) 40 Mg Tablet.dr, 40 MG PO DAILY, TAB 02/24/18 Atorvastatin* (Atorvastatin*) 80 Mg Tablet, 80 MG PO QHS, #30 TAB 02/24/18 Metoprolol Tartrate* (Lopressor*) 25 Mg Tab, 25 MG PO BID, #60 TAB 02/24/18 Aspirin (Low Dose Aspirin) 81 Mg Tablet.dr, 81 MG PO DAILY, #30 TAB 02/24/18 Clopidogrel Bisulfate (Clopidogrel) 75 Mg Tablet, 75 MG PO DAILY, #30 TAB 02/24/18 Lisinopril* (Lisinopril*) 5 Mg Tablet, 5 MG PO DAILY, #30 TAB 02/24/18 Discontinued Scripts Ranolazine* (Ranexa*) 500 Mg Tab.sr.12h, 500 MG PO Q12 for 30 Days, #60 TAB 1 Refill Prov:HEATH HATCH 02/25/18 Follow-up Plan 1. Continue to take all medications as prescribed. 2. See your wire charger Dr. Quan as scheduled. 3. Return to the emergency room if you develop pressure-like chest pain that does not resolve with rest and nitroglycerine. Primary Care Provider Not On Staff Doctor Time spent on discharge: > 30 minutes Pending Labs Laboratory Tests Test 10/21/18 16:34 10/21/18 21:40 10/22/18 06:33 Troponin I < 0.012 < 0.012 ng/ml (0.000-0.120) ng/ml (0.000-0.120 ) White Blood Count 7.3 10^3/ul (4.8-10.8) Red Blood Count 5.02 10^6/ul (4.70-6.10 ) Hemoglobin 14.0 g/dl (14.0-18.0) Hematocrit 42.8 % (42.0-52.0) Mean Corpuscular 85.3 Volume fl (82.0-101.0) Mean Corpuscular 27.9 Hemoglobin pg (29.0-33.0) Mean Corpuscular 32.7 Hemoglobin Concent g/dl (32.0-37.0) Red Cell 14.1 % (11.5-14.5) Distribution Width Platelet Count 228 10^3/UL (140-415) Mean Platelet 9.0 fl (7.4-10.4) Volume Immature 0.300 Granulocytes % % (0.001-0.429) Neutrophils % 58.0 % (39.0-77.0) Lymphocytes % 29.2 % (15.0-51.0) Monocytes % 10.1 % (0.0-11.0) Eosinophils % 1.7 % (0.0-7.0) Basophils % 0.7 % (0.0-2.0) Nucleated Red Blood 0.0 Cells % /100WBC (0.0-0.0) Immature 0.020 Granulocytes # 10^3/ul (0.0-0.031 ) Neutrophils # 4.2 10^3/ul (1.6-7.5) Lymphocytes # 2.1 10^3/ul (0.8-2.9) Monocytes # 0.7 10^3/ul (0.3-0.9) Eosinophils # 0.1 10^3/ul (0.0-0.5) Basophils # 0.1 10^3/ul (0.0-0.1) Nucleated Red Blood 0.0 Cells # 10^3/ul (0.0-0.0) Sodium Level 139 mmol/L (135-144) Potassium Level 4.2 mmol/L (3.5-5.1) Chloride Level 105 mmol/L (97-110) Carbon Dioxide 28 mmol/L (21-31) Level Anion Gap 6 (5-13) Blood Urea 16 mg/dl (7-20) Nitrogen Creatinine 0.77 mg/dl (0.61-1.24) Est Glomerular > 60 mL/min (>60) Filtrat Rate mL/min Glucose Level 108 mg/dl (70-220) Hemoglobin A1c 5.2 % (0-5.9) Calcium Level 9.0 mg/dl (8.4-10.2) Phosphorus Level 4.5 mg/dl (2.5-4.9) Magnesium Level 2.2 mg/dl (1.7-2.5) Total Bilirubin 0.6 mg/dl (0.2-1.3) Direct Bilirubin 0.00 mg/dl (0.00-0.20) Indirect Bilirubin 0.6 mg/dl (0-1.1) Aspartate Amino 22 IU/L (15-46) Transf (AST/SGOT) Alanine 25 IU/L (13-69) Aminotransferase (A LT/SGPT) Alkaline 65 IU/L (42-121) Phosphatase Total Protein 6.0 g/dl (6.1-8.1) Albumin 3.6 g/dl (3.3-4.9) Globulin 2.40 g/dl (1.3-3.2) Albumin/Globulin 1.50 Ratio Triglycerides 294 mg/dl (0-149) Level Cholesterol Level 220 mg/dl (100-200) LDL Cholesterol, 113 mg/dl Calculated HDL Cholesterol 48 mg/dl (27-67) Cholesterol/HDL 4.5 RATIO Ratio Thyroid Stimulating 3.000 Hormone (TSH) MIU/L (0.465-4.680 ) RAUL RALPH MD October 22, 2018 15:38
--- NOTE | 2018-10-24 14:50 | RADRPT ---
Vent Rate: 70 bpm RR Interval: 0 msec NM Interval: 142 msec QRS Duration: 90 msec QT Interval: 380 msec QTC Interval: 410 msec P-R-T [place]: 68 - 39 - 57 degrees Normal sinus rhythm Normal ECG Electronically Signed By: [facility]
== END 2018-10-22 13:59 | disposition home or self-care (01) ==
LOC: E/R 08:10 → TEL 10:51
PROVIDERS: ADMIT Internal Medicine; ATTEND Internal Medicine
DX: F41.0 Panic disorder [episodic paroxysmal anxiety] (principal); R07.9 Chest pain, unspecified; I10 Essential (primary) hypertension; E78.5 Hyperlipidemia, unspecified; I25.10 Atherosclerotic heart disease of native coronary artery without angina pectoris; Z95.5 Presence of coronary angioplasty implant and graft; F17.290 Nicotine dependence, other tobacco product, uncomplicated; Z79.82 Long term (current) use of aspirin
CPT/HCPCS: 36415; 71045; 80053; 80061; 83036; 83735; 84100; 84443; 84484; 85025; 85610; 85730; 93005; 96374; 96375; J2060; J2270; J2405; Z7500; Z7502; Z7610; G0378